=== PATIENT | female | born 1975 | race Caucasian/White ===

== ENCOUNTER 2016-10-22 11:50 | Emergency (ER) | payer OTHER ==
[~2016-10-22 11:50] MED LIST: ACETAMINOPHEN PO; ACETAMINOPHEN/O1 TA3 PO; AMB5 PO; AMBIEN5 MG PO; COL100 PO; HYDROCODONE PO; PER5 PO; SAVELLA50 MG PO; TOPAMAX50 MG PO; WELLBUTRIN XL300 MG PO; ZOFRAN8 MG PO; ZOL50 PO
[2016-10-22 13:11] LABS: BASOPHIL % 0.4 % (0-2); RED CELL DISTRIBUTION WIDTH 19.1 % (11.5-14.5)
[2016-10-22 13:12] LABS: PLATELET COUNT 532 x10^3mcL (130-400)
[2016-10-22 13:46] LABS: UA SPECIFIC GRAVITY 1.025 (1.005-1.035); microscopic required? YES; urine erythrocyte 2+ (NEGATIVE)
[2016-10-22 13:54] LABS: ALBUMIN 4.1 g/dL (3.4-5.0); ALKALINE PHOSPHATASE 125 U/L (46-116); ALT/SGPT 19 U/L (14-59); AST/SGOT 25 U/L (15-37); BILIRUBIN TOTAL 1.1 mg/dL (0.20-1.00); CHLORIDE SERUM 103 mmol/L (98-107); CREATININE SERUM 0.6 mg/dL (0.6-1.0); GFR1 > 60 mL/min; GLUCOSE SERUM 90 mg/dL (74-106); SODIUM SERUM 142 mmol/L (136-145); TOTAL PROTEIN, SERUM 7.9 g/dL (6.4-8.2)
[2016-10-22 13:58] LABS: POTASSIUM SERUM 2.9 mmol/L (3.5-5.1)
[2016-10-22 14:24] LABS: AMPHETAMINE QUAL UR NONE DETECTED (NEG <=1000)
[2016-10-22 22:00] VITALS: BP 112/71
== END 2016-10-22 22:00 | disposition short-term general hospital (02) ==
LOC: ED 11:50
PROVIDERS: Specialist
DX: R45.851 Suicidal ideations (principal); F11.23 Opioid dependence with withdrawal; E87.6 Hypokalemia; F41.9 Anxiety disorder, unspecified; Z86.018 Personal history of other benign neoplasm
CPT/HCPCS: 80307; 83880; G0480; J1170; J2060; J3480; J7030; J7040; Q0162

== ENCOUNTER 2016-12-04 18:34 | Emergency (ER) | payer OTHER ==
[2016-12-04 19:45] VITALS: BP 139/83
== END 2016-12-04 19:45 | disposition home or self-care (01) ==
LOC: ED 18:34
DX: N12 Tubulo-interstitial nephritis, not specified as acute or chronic (principal); K08.89 Other specified disorders of teeth and supporting structures

== ENCOUNTER 2017-01-02 13:50 | Emergency (ER) | payer OTHER ==
[2017-01-02 16:36] LABS: CALCIUM 8.8 mg/dL (8.5-10.1); CARBON DIOXIDE 19.6 mmol/L (21-32); CHLORIDE SERUM 103 mmol/L (98-107); CREATININE SERUM 0.5 mg/dL (0.6-1.0); GFR1 > 60 mL/min; GLUCOSE SERUM 93 mg/dL (74-106); POTASSIUM SERUM 3.2 mmol/L (3.5-5.1); SODIUM SERUM 139 mmol/L (136-145)
[2017-01-02 16:42] LABS: ALBUMIN 3.8 g/dL (3.4-5.0); ALKALINE PHOSPHATASE 103 U/L (46-116); ALT/SGPT 19 U/L (14-59); AST/SGOT 15 U/L (15-37); TOTAL PROTEIN, SERUM 7.2 g/dL (6.4-8.2)
[2017-01-02 16:48] LABS: BASOPHIL % 0.3 % (0-2); PLATELET COUNT 288 x10^3mcL (130-400)
[2017-01-02 16:52] LABS: RED CELL DISTRIBUTION WIDTH 19.9 % (11.5-14.5)
[2017-01-02 18:13] LABS: AMPHETAMINE QUAL UR NONE DETECTED (NEG <=1000)
[2017-01-02 18:37] VITALS: BP 136/88
== END 2017-01-02 18:37 | disposition home or self-care (01) ==
LOC: ED 13:50
PROVIDERS: Emergency Medicine
DX: R07.9 Chest pain, unspecified (principal); R06.4 Hyperventilation; L73.9 Follicular disorder, unspecified; Z76.0 Encounter for issue of repeat prescription; Z88.6 Allergy status to analgesic agent; Z88.5 Allergy status to narcotic agent
CPT/HCPCS: 36415; 83880; Q0092

== ENCOUNTER 2017-01-15 00:45 | Emergency (ER) | payer OTHER ==
[2017-01-15 05:06] LABS: microscopic required? YES; urine erythrocyte 2+ (NEGATIVE)
[2017-01-15 05:07] LABS: BASOPHIL % 0.7 % (0-2)
[2017-01-15 05:10] LABS: PLATELET COUNT 430 x10^3mcL (130-400); RED CELL DISTRIBUTION WIDTH 19.7 % (11.5-14.5)
[2017-01-15 05:26] LABS: ALBUMIN 3.9 g/dL (3.4-5.0); ALKALINE PHOSPHATASE 124 U/L (46-116); ALT/SGPT 26 U/L (14-59); AMYLASE 37 U/L (25-115); AST/SGOT 25 U/L (15-37); BILIRUBIN TOTAL 2.1 mg/dL (0.20-1.00); CARBON DIOXIDE 23.8 mmol/L (21-32); CHLORIDE SERUM 102 mmol/L (98-107); CREATININE SERUM 0.8 mg/dL (0.6-1.0); GFR1 > 60 mL/min; GLUCOSE SERUM 94 mg/dL (74-106); LIPASE 167 IU/L (73-393); SODIUM SERUM 139 mmol/L (136-145); TOTAL PROTEIN, SERUM 7.8 g/dL (6.4-8.2)
[2017-01-15 05:27] LABS: POTASSIUM SERUM 2.8 mmol/L (3.5-5.1)
[2017-01-15 06:28] VITALS: BP 142/94
== END 2017-01-15 06:28 | disposition home or self-care (01) ==
LOC: ED 00:45
PROVIDERS: Emergency Medicine
DX: R31.9 Hematuria, unspecified (principal); R42 Dizziness and giddiness; R10.9 Unspecified abdominal pain; M79.7 Fibromyalgia; G89.29 Other chronic pain; M54.9 Dorsalgia, unspecified; Z90.49 Acquired absence of other specified parts of digestive tract; Z88.5 Allergy status to narcotic agent; Z88.8 Allergy status to other drugs, medicaments and biological substances; Z87.442 Personal history of urinary calculi
CPT/HCPCS: J1170; Q0162

== ENCOUNTER 2017-01-25 09:46 | Inpatient (IN) | payer OTHER ==
[~2017-01-25] VITALS: Ht 160 cm; Wt 86.0 kg
--- NOTE | 2017-01-25 10:01 | NUR ---
PT WAS BROUGHT IN BY AMBULANCE W/CC OF POSS OVERDOSE. PER MEDIC "PATIENT ADMITTED TO TAKING 90 PILLS OF NORCO IN 3 DAYS AND 1 PILL OF XANAX TODAY WITH MORE THAN HALF A BOTTLE OF VODKA". PT REPORTS SUICIDAL IDEATION AND STATES THE REASON SHE DOESN'T "KILL HERSELF" IS BECAUSE OF HER SON. PT REPORTS HER 8YR OLD SON STILL NEEDS HER AND HE'S THE REASON WHY SHE'S TRYING TO GET HELP. PT STS SHE WAS PREVIOUSLY SEEN IN [facility] BUT WAS DISCHARGED AFTER 1WK DUE TO INSURANCE NOT COVERING THE REST OF HER VISIT. PT CALLED A HELP LINE TODAY CIRCULATION ANALYST AND HELP LINE CALLED [employer] TO RESIDENCE. PT SPEAKING IN CLEAR FULL SENTENCES. COOPERATIVE. NO NEUROLOGICAL DEFICITS NOTED AT THIS TIME. PT ABLE TO FOLLOW COMMANDS. VSS. SUICIDE PRECAUTIONS IMPLEMENTED. BELONGINGS REMOVED AND PLACED IN RADIO ROOM. COMFORT MEASURES IMPLEMENTED. PT IN DIRECT VIEW OF NURSE'S STATION. WILL CONTINUE TO MONITOR.
--- NOTE | 2017-01-25 10:14 | NUR ---
DR. IRVIN AT BEDSIDE FOR MSE.
--- NOTE | 2017-01-25 10:29 | NUR ---
SPOKE W/TONYA FROM POISON CONTROL. STS DUE TO PT'S CHRONIC INGESTION, HEPATOTOXIC PANEL COULD BE DIFFICULT TO EVALUATE. SHE RECOMMENDED STARTING PT ON N-ACETYLCYSTEINE AND OBTAINING LST, AST, INR, ACETAMINOPHEN, BLOOD ALCOHOL LEVELS WELL A METABOLIC PANEL AND EKG. DR. IRVIN MADE AWARE.
[2017-01-25 10:54] LABS: PLATELET COUNT 303 x10^3mcL (130-400)
[2017-01-25 11:00] LABS: BASOPHIL % 0 % (0-2); RED CELL DISTRIBUTION WIDTH 19.9 % (11.5-14.5)
--- NOTE | 2017-01-25 11:06 | NUR ---
AMBULATED PT TO RESTROOM W/STEADY GAIT, NO ASSISTANCE NEEDED. URINE SAMPLE COLLECTED AND SENT TO LAB
[2017-01-25 11:08] LABS: microscopic required? YES; urine erythrocyte 1+ (NEGATIVE)
[2017-01-25 11:13] LABS: ALBUMIN 3.8 g/dL (3.4-5.0); ALKALINE PHOSPHATASE 106 U/L (46-116); ALT/SGPT 53 U/L (14-59); AST/SGOT 58 U/L (15-37); BILIRUBIN TOTAL 0.4 mg/dL (0.20-1.00); CALCIUM 8.5 mg/dL (8.5-10.1); CARBON DIOXIDE 20.8 mmol/L (21-32); CHLORIDE SERUM 110 mmol/L (98-107); CREATININE SERUM 0.6 mg/dL (0.6-1.0); GFR1 > 60 mL/min; GLUCOSE SERUM 84 mg/dL (74-106); SODIUM SERUM 146 mmol/L (136-145); TOTAL PROTEIN, SERUM 7.9 g/dL (6.4-8.2)
[2017-01-25 11:15] LABS: POTASSIUM SERUM 2.9 mmol/L (3.5-5.1)
--- NOTE | 2017-01-25 11:47 | NUR ---
PT ANXIOUS ON GUDEIRDRE REQUESTING PAIN MEDS. DR. IRVIN AT BEDSIDE SPEAKING TO PT.
--- NOTE | 2017-01-25 12:45 | NUR ---
MEDICATED ORDERED. PLEASE SEE EMR.
--- NOTE | 2017-01-25 13:12 | NUR ---
EATING LUNCH. AWAITING PSYCH PLACEMENT.
--- NOTE | 2017-01-25 13:22 | NUR ---
PT TOLERATED LUNCH TRAY WELL. GIVEN TOOTHBRUSH, TOOTHPASTE, LOTION, DEODORANT & MOUTHWASH. DECLINED OFFER OF TOWELS.
[2017-01-25] MEDS ORDERED: NORCO1 TA2 PO (14:30)
[2017-01-25] MEDS ORDERED: PROZAC10 M2 PO (14:31)
[2017-01-25] MEDS ORDERED: XANAX XR1 M1 PO (14:31)
[2017-01-25 14:51] LABS: CALCIUM 8.3 mg/dL (8.5-10.1); CARBON DIOXIDE 15.4 mmol/L (21-32); CHLORIDE SERUM 110 mmol/L (98-107); CREATININE SERUM 0.7 mg/dL (0.6-1.0); GFR1 > 60 mL/min; GLUCOSE SERUM 124 mg/dL (74-106); SODIUM SERUM 144 mmol/L (136-145)
[2017-01-25 15:01] LABS: POTASSIUM SERUM 2.6 mmol/L (3.5-5.1)
--- NOTE | 2017-01-25 15:33 | NUR ---
MEDICATED W/POTASSIUM ORDERED FOR LOW K+ READING.
--- NOTE | 2017-01-25 16:27 | NUR ---
IV SITE PATENT. NO S/S OF INFILTRATION OR INFECTION NOTED. PT DENIES PAIN OR DISCOMFORT TO SITE.
--- NOTE | 2017-01-25 17:21 | NUR ---
REPORT TO [place].
--- NOTE | 2017-01-25 17:33 | NUR ---
SPOKE W/EDMOND FROM POISON CONTROL AND GAVE UPDATE.
--- NOTE | 2017-01-25 17:38 | NUR ---
RECEIVED PT FROM ED VIA [employer], PT IS AAOX4. NO SOB NOTED. DENIES CHEST PAIN/PERSSURE, NSR ON THE MONITOR. C/P MILD NAUSEA AND DIARRHEAL EPISODES, STATED THAT SHE VOMITED X2 BEFORE ADMISSION. C/O 8/10 SHARP BACK AND RLE PAIN. PT IS DEPRESSED. PT DENIES SUICIAL THOUGHTS AT THIS TIME. SITTER AT BEDSIDE. SIDE RAILS UPX2. CALL LIGHT ON REACH. ENDORSED TO PRIMARY NURSE [place] FOR CONTINUITY OF CARE.
[2017-01-25 17:43] VITALS: BP 121/71
[2017-01-25 17:48] VITALS: Ht 160 cm; Wt 86.0 kg
--- NOTE | 2017-01-25 18:15 | NUR ---
ASSUMED PT. CARE,RECIEVED PT. AWAKE,ALERT AND ORIENTED. NO SUCIDAL EDEATION AT THIS TIME.SITTER AT BEDSIDE. QUITE CALM AND COOPERATIVE,K-2.6 NOTIFIED W/ NEW ORDERS MADE AND CARRIED OUT.K-RIDER GIVEN AND INFUSING WELL TO RT. AC. CONT. IV FLUIDS ORDERED. ABLE TO AMBULATE IN THE BATHROOM AND VOIDING WELL.CALL LIGHT W/ IN REACH. WILL CONT. PLAN OF CARE.
--- NOTE | 2017-01-25 20:00 | NUR ---
RECEIVED PT IN BED, ALERT AND ORIENTED. SITTER AT THE BEDSIDE FOR SAFETY. DENIES HEADACHE/DIZZINESS. RESP. EVEN AND UNLABORED. ON ROOM AIR, NO DISTRESS NOTED. SR ON THE MONITOR.DENIES CHEST PAIN OR PRESSURE. COMPLAINING OF BACK PAIN, REQUESTING PAIN MED, WILL MEDICATE ORDERED. AFEBRILE AND VITAL SIGNS STABLE.IVF, NS AT 80ML/HR, INTACT AND INFUSING VIA RAC, SITE CLEAR. K-RIDER ALSO INFUSING AT THIS TIME. CALL LIGHT WITHIN REACH. WILL CONTINUE TO MONITOR.
[2017-01-25 20:49] VITALS: BP 120/62
[2017-01-25 21:00] LABS: UA SPECIFIC GRAVITY 1.025 (1.005-1.035); microscopic required? YES; urine erythrocyte 1+ (NEGATIVE)
[2017-01-25 21:19] LABS: AMPHETAMINE QUAL UR NONE DETECTED (NEG <=1000)
--- NOTE | 2017-01-25 22:20 | NUR ---
COMPLAINED OF BACK PAIN, 12/24, MEDICATED WITH NORCO PO ORDERED, BUT PT STATES NO PAIN RELIEF, REQUESTING DILAUDID, DR BROWN MADE AWARE, DILAUDID ORDERED. ,MEDICATED ORDERED. WILL CONTINUE TO MONITOR.
--- NOTE | 2017-01-25 23:23 | NUR ---
EYES CLOSED. APPEARS ASLEEP AT THIS TIME. EASILY AROUSABLE.NO DISTRESS NOTED. WILL CONTINUE TO MONITOR.
[2017-01-26 05:50] VITALS: BP 137/90
--- NOTE | 2017-01-26 06:27 | NUR ---
SLEPT WELL. NO COMPLAINTS NOTED AT THIS TIME. AFEBRILE AND VITAL SIGNS STABLE. RESP. EVEN AND UNLABORED. DENIES PAIN OR ANY DISCOMFORT AT THIS TIME. IVF INTACT AND INFUSING, SITE CLEAR. AMBULATES TO THE BATHROOM, VOIDS FREELY. SITTER AT THE BEDSIDE FOR SAFETY. WILL CONTINUE TO MONITOR.
[2017-01-26 06:32] LABS: BASOPHIL % 0.5 % (0-2); PLATELET COUNT 283 x10^3mcL (130-400)
[2017-01-26 06:46] LABS: RED CELL DISTRIBUTION WIDTH 19.9 % (11.5-14.5)
[2017-01-26 07:03] LABS: CALCIUM 8.3 mg/dL (8.5-10.1); CHLORIDE SERUM 111 mmol/L (98-107); CREATININE SERUM 0.6 mg/dL (0.6-1.0); GFR1 > 60 mL/min; GLUCOSE SERUM 78 mg/dL (74-106); POTASSIUM SERUM 3.8 mmol/L (3.5-5.1); SODIUM SERUM 142 mmol/L (136-145)
--- NOTE | 2017-01-26 07:50 | NUR ---
A/OX4. PATIENT IS AWAKE AND CALM. SAD AND DEPRESSED MOOD. SITTER AT BEDSIDE FOR SAFETY. SCDS ARE APPLIED TO BILATERAL LOWER EXTREMITIES. RA WITH NO SIGNS OF RESPIRATORY DISTRESS. DENIES CHEST PAIN. NO COMPLAINTS OF NAUSEA. AMBULATORY TO THE RESTROOM AND VOIDS WELL. SKIN ASSESSMENT INTACT. IV FLUIDS INFUSING WELL WITH NO SIGNS OF INFLITRATION. CALL LIGHT WITHIN REACH. WILL CONTINUE PLAN OF CARE.
--- NOTE | 2017-01-26 09:00 | NUR ---
DR TOWNSEND AND OTHER MEDICAL STAFF ARE MAKING ROUNDS. WILL UPDATE PLAN OF CARE.
--- NOTE | 2017-01-26 12:53 | NUR ---
PT COMPLAINED OF BACK PAIN. PT WAS GIVEN PAIN MEDICATIONS ORDERED. WILL REASSESS.
--- NOTE | 2017-01-26 13:45 | NUR ---
PT IS TOLERATING MEDICATION WELL AND HAS NO COMPLAINTS OF PAIN AT THIS TIME. WILL CONTINUE TO MONITOR.
--- NOTE | 2017-01-26 18:34 | NUR ---
PT. QUITE AND RESTING COMFORTABLY IN BED. DENIES ANY PAIN AT THIS TIME. CONT. IV FLUIDS ORDERED.CALL LIGHT W/ IN REACH.1;1 SITTER AT BEDSIDE
--- NOTE | 2017-01-26 19:33 | NUR ---
PT C/O SEVERE BACK PAIN 03/26, WILL MEDICATE PT WITH NORCO 10/325MG PO ORDERED FOR PAIN .
--- NOTE | 2017-01-26 19:58 | NUR ---
REC'D PT FROM DAY NURSE. AAOX4. LAYING IN BED SAD AND DEPRESSED. PULSES ARE EVEN AND PALPABLE. TELE #6. LUNG SOUNDS ARE CTA. BREATH SOUNDS ARE EVEN AND UNLABORED. NO SOB. NO N/V/D. ABD IS SOFT AND ROUND. NO EDEMA NOTED. 5150 NOTED. SITTER AT BEDSIDE FOR SAFETY. BED IN LOWEST POSITION. CALL LIGHT WITHIN REACH. WILL CONT TO MONITOR AND PROCEED TO THE PLAN OF CARE.
--- NOTE | 2017-01-26 21:23 | NUR ---
Pt IS COMPLAINING OF CONSTANT BACK PAIN 10/. WILL BE [facility] PAIN MED.
--- NOTE | 2017-01-26 21:28 | NUR ---
Pt BP 128/23 (88), HR 75, 02 SAT 98%. WILL CONT TO MONITOR.
[2017-01-26 21:30] VITALS: BP 128/73
--- NOTE | 2017-01-27 02:44 | NUR ---
PT IS CURRENTLY ASLEEP AND RESTING WELL. NO SIGNS OF ACUTE DISTRESS NOTED. IV INTACT AND PATENT. WILL CONT TO MONITOR.
[2017-01-27 06:11] VITALS: BP 143/84
--- NOTE | 2017-01-27 06:11 | NUR ---
PT SLEPT THROUGHOUT THE SHIFT. NO ACUTE DISTRESS OR SIGNIFICANT CHANGES NOTED. PT WAS VERY CALM AND COOPERATIVE. ALL NEEDS MET AND ATTENDED TO. IV INTACT AND PATENT INFUSING WELL. WILL ENDORSE ALL CONTINUITY CARE TO ONCOMING NURSE.
[2017-01-27 06:44] LABS: BASOPHIL % 0.4 % (0-2); PLATELET COUNT 285 x10^3mcL (130-400)
[2017-01-27 06:48] LABS: RED CELL DISTRIBUTION WIDTH 19.5 % (11.5-14.5)
[2017-01-27 06:52] LABS: CALCIUM 8.2 mg/dL (8.5-10.1); CARBON DIOXIDE 22.5 mmol/L (21-32); CHLORIDE SERUM 107 mmol/L (98-107); CREATININE SERUM 0.5 mg/dL (0.6-1.0); GFR1 > 60 mL/min; GLUCOSE SERUM 82 mg/dL (74-106); POTASSIUM SERUM 3.3 mmol/L (3.5-5.1); SODIUM SERUM 141 mmol/L (136-145)
--- NOTE | 2017-01-27 08:30 | NUR ---
PT. IS AWAKE, ALERT, AND ORIENTED X4. PT. RIGHT AC PATENT AND IV FLUIDS INFUSING WELL. PT. IS ABLE TO ABULATE TO THE BATHROOM. PT COMPLAINS OF BACK PAIN. MEDICATED FOR PAIN ORDERED. PT. IS IN NO ACUTE DISTRESS AT THE TIME. CONTINUE PLAN OF CARE.
--- NOTE | 2017-01-27 09:30 | NUR ---
DR JETT AND OTHER MEDICAL STAFF MADE ROUNDS AND UPDATED PT. PLAN OF CARE.
[2017-01-27 10:00] VITALS: BP 129/87
--- NOTE | 2017-01-27 10:00 | NUR ---
POTASSIUM LEVEL AT 3.3. DR. ZIMMER NOTIFIED WITH ORDERS RECEIVED AND CARRIED OUT.
--- NOTE | 2017-01-27 11:00 | NUR ---
PT WENT DOWN TO XRAY PER WHEELCHAIR.
--- NOTE | 2017-01-27 11:45 | NUR ---
PT. BACK FROM XRAY PER WHEELCHAIR. PT. COMPLAINS OF ABDOMINAL PAIN. MEDICATED FOR PAIN ORDERED.
--- NOTE | 2017-01-27 12:00 | NUR ---
ENCOURAGED PT. TO GET OUT OF BED TO WASH SELF IN THE BATHROOM. PT. WILLING TO DO HER CARE.
--- NOTE | 2017-01-27 12:00 | NUR ---
OLD IV RIGHT AC STARTED LEAKING. NANCY PRIDE DISCONTINUED THE OLD IV ACCESS AND REINSERTED IV IN LEFT HAND WITH GOOD BLOOD RETURN.
[2017-01-27 14:00] VITALS: BP 129/75
[2017-01-27 17:50] VITALS: BP 124/77
--- NOTE | 2017-01-27 18:37 | NUR ---
DENIES PAIN AT THIS TIME.NO ACUTE DISTRESS NOTED. CALL LIGHT W/ IN REACH. STILL ON 5150 ,CONT. 1;1 SITTER AT BEDSIDE.
--- NOTE | 2017-01-27 19:20 | NUR ---
PT ALERT AND AWAKE. AOX4. VERBAL WITH CLEAR SPEECH. LUNGS CLEAR BILATERALLY. NO S/S OF RESPIRATORY DISTRESS NOTED. ON TELE 7, NSR. DENIES ANY CHEST PAIN. ABD SOFT AND ROUND. BOWEL SOUNDS ACTIVE. LAST BM 01/27/17. SKIN WARM AND DRY. IV PATENT AND INFUSING WELL. NO S/S OF INFECTION NOTED. NO EDEMA NOTED. PULSES PALPABLE. NO S/S OF DISTRESS NOTED AT THIS TIME. CALM AND COOPERATIVE AT THIS TIME. SITTER AT BEDSIDE. CALL LIGHT WITHIN REACH. WILL CONTINUE TO MONITOR.
--- NOTE | 2017-01-28 00:50 | NUR ---
PT AWAKE AND ALERT. C/O ABDOMINAL PAIN 01/24. PRN MORPHINE 4MG IVP GIVEN. PT C/O FEELING ITCHY. NO RASHES NOTED. DENIES ANY SOB. NO S/S OF RESPIRATORY DISTRESS NOTED. PRN BENADRYL 50 MG PO GIVEN FOR ITCHINESS. CALL LIGHT WITHIN REACH. WILL CONTINUE TO MONITOR.
--- NOTE | 2017-01-28 02:15 | NUR ---
PT RESTING IN BED WITH EYES CLOSED. BREATHING EQUAL AND UNLABORED. NO S/S OF RESPIRATORY DISTRESS NOTED. IV PATENT AND INFUSING WELL. NO S/S OF DISTRESS NOTED. RESTING COMFORTABLY WITH RELAXED FACIAL FEATURES. CALL LIGHT WITHIN REACH. WILL CONTINUE TO MONITOR.
--- NOTE | 2017-01-28 06:17 | NUR ---
PT SLEPT WELL THROUGH THE NIGHT. EASILY AROUSED WHEN NAME CALLED. RECEIVED ROUTINE ATIVAN 1 MG PO AND SWALLOWED WITHOUT DIFFICULTY. CALM AND COOPERATIVE. NO S/S OF DISTRESS NOTED. RESTING WITH RELAXED FACIAL FEATURES. CALL LIGHT WITHIN REACH. WILL CONTINUE TO MONITOR.
[2017-01-28 06:41] LABS: BASOPHIL % 0.5 % (0-2); PLATELET COUNT 273 x10^3mcL (130-400)
[2017-01-28 06:42] LABS: CALCIUM 8.3 mg/dL (8.5-10.1); CARBON DIOXIDE 23.4 mmol/L (21-32); CHLORIDE SERUM 109 mmol/L (98-107); CREATININE SERUM 0.5 mg/dL (0.6-1.0); GFR1 > 60 mL/min; GLUCOSE SERUM 81 mg/dL (74-106); POTASSIUM SERUM 3.4 mmol/L (3.5-5.1); SODIUM SERUM 142 mmol/L (136-145)
[2017-01-28 06:43] LABS: RED CELL DISTRIBUTION WIDTH 18.8 % (11.5-14.5)
--- NOTE | 2017-01-28 07:35 | NUR ---
AAO X4.C/O BACK PAIN AT 6/10 PAIN SCALE.REFUSED PAIN MEDS AT THE MOMENT.LUNGS CLEAR. ON SR ON THE MONITOR.IVF NS GOING AT 150 ML/HR INFUSING WELL.ON 5150 HOLD .SITTER AT BEDSIDE.CALL LIGTH WITHIN REACH.INSTRUCTED TO CALL FOR ANY PAIN/DISCOMFORT.WILL CONTINUE TO MONITOR PT.
--- NOTE | 2017-01-28 08:26 | NUR ---
AND MEDICINE TEAM AT BEDSIDE.INFORMED PT ABOUT THE PLAN OF CARE.PT COOPERATIVE.
[2017-01-28 09:03] VITALS: BP 102/54
--- NOTE | 2017-01-28 10:26 | NUR ---
GAVE MORPHINE 4 MG IVP ORDERED FOR C/O ABDOMINAL PAIN AND BACK PAIN AT 8/10 PAIN SCALE.WILL CONTINUE TO MONITOR PT.
[2017-01-28 13:36] VITALS: BP 135/83
--- NOTE | 2017-01-28 15:00 | NUR ---
INFORMED ABOUT THE K=3.4
[2017-01-28 18:20] VITALS: BP 151/93
--- NOTE | 2017-01-28 18:34 | NUR ---
NO SIGNIFICANT CHANGE NOTED.WILL ENDORSE TO NEXT SHIFT.
--- NOTE | 2017-01-28 19:39 | NUR ---
SHIFT REASSESSMENT DONE.PATIENT ALERT AND ORIENTED.5150,SITTER AT BEDSIDE FOR SAFETY.BREATHING EASY,STILL EATING DINNER.GOOD APPETITE.MOVING ALL EXT WELL.NS AT 150 CC/ HOUR.IV SITE GOOD AND SECURED.TELE 7 SR.SKIN INTACT.SCD ORDERED.CALL LITE IN REACH.
[2017-01-28 21:03] VITALS: BP 125/80
--- NOTE | 2017-01-28 21:26 | NUR ---
PATIENT CHECKED AT INTERVALS,SITTER AT BEDSIDE.NO INCIDENT.
--- NOTE | 2017-01-29 01:44 | NUR ---
GIVEN MSO4 AT THIS TIME SHE SAYS BLADIMIR DID NOT WORK.HAS BACK PROBLEM.
--- NOTE | 2017-01-29 03:12 | NUR ---
DR STAUFFER MADE AWARE OF PATIENT LOW K+,NOT COVERED FROM YESTERDAY.
--- NOTE | 2017-01-29 03:14 | NUR ---
PATIENT WAS GIVEN PAIN PILL AROUND AFTER MIDNITE,BLADIMIR,WAS SCANNED ALREADY,SAYS IT WILL NOT WORK,REMINDED JUST TRY IT FOR NOW.IF NOT EFFECTIVE WILL GIVE PAIN SHOT.
[2017-01-29 06:20] LABS: BASOPHIL % 0.5 % (0-2); PLATELET COUNT 283 x10^3mcL (130-400)
--- NOTE | 2017-01-29 06:21 | NUR ---
I AND O MEASURED.ATIVAN THIS AM GIVEN,ETOH PROTOCOL.WILL ENDORSE TO INCOMING SHIFT.
[2017-01-29 06:24] LABS: RED CELL DISTRIBUTION WIDTH 19.7 % (11.5-14.5)
[2017-01-29 06:26] LABS: CALCIUM 7.8 mg/dL (8.5-10.1); CARBON DIOXIDE 25.1 mmol/L (21-32); CHLORIDE SERUM 108 mmol/L (98-107); CREATININE SERUM 0.6 mg/dL (0.6-1.0); GFR1 > 60 mL/min; GLUCOSE SERUM 102 mg/dL (74-106); POTASSIUM SERUM 3.5 mmol/L (3.5-5.1); SODIUM SERUM 143 mmol/L (136-145)
[2017-01-29 06:34] VITALS: BP 105/60
--- NOTE | 2017-01-29 08:57 | NUR ---
AAO TIMES 4. DENIES SUICIDAL IDEATION. 1:1 SITTER AT BEDSIDE. COOPERATIVE AND PLEASANT. LUNGS CTA. NO SOB. O2 SAT ON RA 98%. BS'S ACTIVE TIMES 4. OBESE. PERIPHERAL PULSES PALPABLE. NO EDEMA. SCD BLE. PT STATES SHE GETS CRAZY WHEN HER BACK HURTS AND SHE WOULD TAKE ANYTHING OR DRINK ANY ALCOHOL. SHE DENEIS PAIN AT THIS MOMENT. COOPERATIVE AND PLEASANT.
[2017-01-29 10:30] VITALS: BP 108/64
[2017-01-29 18:03] VITALS: BP 141/82
--- NOTE | 2017-01-29 18:44 | NUR ---
AAO TIMES 4. TELE # 7 SR. 1:[address] RAMIREZ SAW PT AND THIS PT WILL CONTINUE TO BE 51/50, WHEN MEDICALLY CLEARED, SHE WILL GO TO A PSYCH FACILITY. NO C/O PAIN AT THIS TIME. IV SITE LEFT HAND CDI, PATENT.
--- NOTE | 2017-01-29 19:51 | NUR ---
SHIFT REASSESSMENT DONE.PATIENT ALERT,WAS ASLEEP,BUT WOKE UP EASILY.IN GOOD SPIRIT.VERBALIZE NEEDS.BREATHING EASY.NS AT 50 CC/ HOUR.TELE 7 SR.STILL 5150.SITTER AT BEDSIDE FOR SAFETY.SKIN INTACT.SCD ORDERED.MSO4 WAS GIVEN LAST 1755.DOES NOT LIKE NORCO PO.ETOH PROTOCOL CONTINOUS.CALL LITE IN REACH.
[2017-01-29 20:43] VITALS: BP 103/65
--- NOTE | 2017-01-29 20:48 | NUR ---
ATIVAN PO AT 2200.
--- NOTE | 2017-01-30 02:22 | NUR ---
SLEEPING COMFORTABLY.SITTER AT BEDSIDE.CALL LITE IN REACH.
--- NOTE | 2017-01-30 05:53 | NUR ---
PATIENT AM MEDS GIVEN WITHOUT ANY INCIDENT.WILL ENDORSE TO NEST SHIFT.
[2017-01-30 06:29] LABS: BASOPHIL % 0.4 % (0-2); PLATELET COUNT 291 x10^3mcL (130-400)
[2017-01-30 06:38] VITALS: BP 122/68
[2017-01-30 06:39] LABS: CALCIUM 8.2 mg/dL (8.5-10.1); CARBON DIOXIDE 27.4 mmol/L (21-32); CHLORIDE SERUM 107 mmol/L (98-107); CREATININE SERUM 0.6 mg/dL (0.6-1.0); GFR1 > 60 mL/min; GLUCOSE SERUM 78 mg/dL (74-106); POTASSIUM SERUM 3.8 mmol/L (3.5-5.1); SODIUM SERUM 141 mmol/L (136-145)
[2017-01-30 07:17] LABS: RED CELL DISTRIBUTION WIDTH 19.4 % (11.5-14.5)
--- NOTE | 2017-01-30 07:25 | NUR ---
RECEIVED PT IN NO ACUTE DISTRESS. RESP EVEN AND UNLABORED ON RA. NO SOB NOTED. 1:1 SITTER AT BEDSIDE. DENIES PAIN AT THIS TIME. IVF INFUSING. BED IN LOWEST POSITION, CALL LIGHT WITHIN REACH. WILL CONTINUE TO MONITOR.
--- NOTE | 2017-01-30 12:20 | NUR ---
PT SITTING ON EDGE OF BED. C/O ABD AND LOWER BACK PAIN 8/10. 4MG MORPHINE GIVEN. BED IN LOWEST POSITION. CALL LIGHT WITHIN REACH. SITTER AT BEDSIDE WILL CONTINUE TO MONITOR.
[2017-01-30 13:25] VITALS: BP 128/92
[2017-01-30 15:35] VITALS: BP 128/92
[2017-01-30 17:41] VITALS: BP 142/86
--- NOTE | 2017-01-30 19:03 | NUR ---
PT SLEEPING IN BED. APPEARS TO BE IN NO ACUTE DISTRESS. IV SALINE LOCKED, INTACT. BED IN LOWEST POSITION. CALL LIGHT WITHIN REACH. 1:1 SITTER AT BEDSIDE. WILL ENDORSE TO NIGHT NURSE.
--- NOTE | 2017-01-30 19:06 | NUR ---
NURSING CO-SIGN THE DOCUMENTATION ENTERED BY THE RN HAS BEEN REVIEWED. REVIEWED/CO-SIGNED BY: Zuleyma Torrez DOCUMENTATION DONE BY: JOVANY MEDELLIN
--- NOTE | 2017-01-30 19:29 | NUR ---
RECEIVED PT FROM PREVIOUS SHIFT. PATIENT A/O X4. TELE #7. IV LEFT HAND SALINE LOCK. BED IN LOWEST POSITION. WILL CONTINUE TO MONITOR.
--- NOTE | 2017-01-30 21:10 | NUR ---
PATIENT A/OX4. TELE #7. NSR AT THIS TIME. DENIES ANY CHEST PAIN OR PRESSURE. PULSES STRONG BILAT. NO EDEMA PRESENT. LUNG SOUNDS CLEAR BILAT. DENIES ANY SOB. BOWEL SOUNDS ACTIVE X4. MILD WEAKNESS IN HAND SYNTHETIC FILAMENT SPINNER BILAT. FOOT PUSH/PULL EVEN AND STRONG BILAT. PERRLA. PATIENT AMBULATORY. SKIN IS INTACT. OLD SURGICAL SCAR PRESENT ON ABD FROM PRIOR LIVER RESECTION/GASTRIC BYPASS. PATIENT CALM AND COOPERATIVE AT THIS TIME. REPORTING PAIN 6/10 IN LOWER BACK AND RIGHT UPPER ABD AREA. STATES PAIN IS SHARP IN BACK AND A CONSTANT SORE ACHE IN THE ABD. BED IN LOWEST POSITION. CALL LIGHT WITHIN REACH. WILL CONTINUE TO MONITOR.
--- NOTE | 2017-01-30 21:17 | NUR ---
ADMINISTERED PAIN MEDS PER EMAR ORDERS. PATIENT DAUGHTER AT BEDSIDE. WILL CONTINUE TO MONITOR
[2017-01-30 21:30] VITALS: BP 132/73
--- NOTE | 2017-01-30 22:54 | NUR ---
PT RESTING IN BED. REQUESTED SHERITA TO HELP WITH SLEEP. NOTIFYING PHARMACY FOR VERIFICATION. WILL CONTINUE TO MONITOR
--- NOTE | 2017-01-30 23:47 | NUR ---
PATIENT RESTING PEACEFULLY. ALIVE AND WELL. WILL CONTINUE TO MONITOR
[2017-01-31 08:00] VITALS: BP 138/74
[2017-01-31 08:54] LABS: CALCIUM 8.3 mg/dL (8.5-10.1); CARBON DIOXIDE 27.1 mmol/L (21-32); CHLORIDE SERUM 106 mmol/L (98-107); CREATININE SERUM 0.6 mg/dL (0.6-1.0); GFR1 > 60 mL/min; GLUCOSE SERUM 60 mg/dL (74-106); POTASSIUM SERUM 3.6 mmol/L (3.5-5.1); SODIUM SERUM 142 mmol/L (136-145)
[2017-01-31 08:55] LABS: BASOPHIL % 0.4 % (0-2); PLATELET COUNT 309 x10^3mcL (130-400)
[2017-01-31 09:58] LABS: RED CELL DISTRIBUTION WIDTH 18.8 % (11.5-14.5)
--- NOTE | 2017-01-31 10:06 | NUR ---
LATE ENTRY 01/31/17 0730 PT RECEIVED FROM NIGHT NURSE IN NO ACUTE DISTRESS. RESPIRATIONS EVEN AND UNLABORED. PT IS RESTING IN BED. NO COMPLAINT OF PAIN AT THIS TIME. IV TO LEFT HAND, SALINE LOCKED. BED IN LOWEST POSITION. CALL LIGHT WITHIN REACH. 1:1 SITTER AT BEDSIDE. WILL CONTINUE TO MONITOR.
--- NOTE | 2017-01-31 12:49 | NUR ---
PT IS ASLEEP IN BED, APPEARS TO BE IN NO ACUTE DISTRESS. NO PAIN NOTED AT THIS TIME. BED IN LOWEST POSITION. CALL LIGHT WITHIN REACH. 1:1 SITTER AT BEDSIDE. WILL CONTINUE TO MONITOR.
[2017-01-31 14:08] VITALS: BP 121/73
[2017-01-31 17:54] VITALS: BP 132/81
--- NOTE | 2017-01-31 18:57 | NUR ---
PT IS RESTING IN BED IN NO ACUTE DISTRESS. SALINE LOCK LEFT HAND. 1:1 SITTER AT BEDSIDE. MORPHINE GIVEN FOR ABD/BACK PAIN 01/24. BED IN LOWEST POSITION. CALL LIGHT WITHIN REACH. WILL ENDORSE TO WELL TENDER NURSE.
--- NOTE | 2017-01-31 19:04 | NUR ---
NURSING CO-SIGN THE DOCUMENTATION ENTERED BY THE RN HAS BEEN REVIEWED. REVIEWED/CO-SIGNED BY: Zuleyma Torrez DOCUMENTATION DONE BY: JOVANY MEDELLIN
--- NOTE | 2017-01-31 19:50 | NUR ---
RECEIVED PT FROM PREVIOUS SHIFT. PT A/OX4. DENIES PAIN. DENIES SOB ON RA. IV PATENT AND HEP LOCKED PER ORDER, FLUSHING WELL. SCDS TO BLE. CALL LIGHT WITHIN REACH, BED IN LOW POSITION. WILL CONTINUE TO MONITOR.
[2017-01-31 21:01] VITALS: BP 103/50
--- NOTE | 2017-01-31 23:06 | NUR ---
PT C/O 01/24 BACK PAIN. BP 122/71. MORPHINE PROVIDED IVP PER EMAR
[2017-02-01 06:36] LABS: BASOPHIL % 0.2 % (0-2); PLATELET COUNT 320 x10^3mcL (130-400)
[2017-02-01 06:45] LABS: CALCIUM 8.4 mg/dL (8.5-10.1); CARBON DIOXIDE 26.9 mmol/L (21-32); CHLORIDE SERUM 106 mmol/L (98-107); CREATININE SERUM 0.6 mg/dL (0.6-1.0); GFR1 > 60 mL/min; GLUCOSE SERUM 79 mg/dL (74-106); POTASSIUM SERUM 3.6 mmol/L (3.5-5.1); SODIUM SERUM 140 mmol/L (136-145)
[2017-02-01 06:51] LABS: RED CELL DISTRIBUTION WIDTH 19.5 % (11.5-14.5)
--- NOTE | 2017-02-01 07:39 | NUR ---
RECEIVED PT LAYING IN BED AWAKE AND ALERT. PT C/O BACK PAIN 01/24. LAYING IN LEFT LATERAL POSITION. RESPIRATIONS EVEN AND UNLABORED. PLEASANT WHEN ENGAGED. CALL LIGHT WITHIN REACH. BED IN LOWEST POSITION. ENCOURAGED PT TO TAKE DEEP BREATHES AND TO REPOSITION FOR COMFORT UNTIL PAIN MEDICATION CAN BE RETRIEVED. WILL CONTINUE TO MONITOR
--- NOTE | 2017-02-01 07:44 | NUR ---
FOR 8/10 PAIN, PT WAS GIVEN MORPHINE PRN IVP. WILL CONTINUE TO MONITOR
--- NOTE | 2017-02-01 09:45 | NUR ---
SPOKE TO PT IN LENGTH ALLOWING HER TO EXPRESS FEELINGS. STATES THAT SHE WANTS TO GO HOME BECAUSE SHE HAS BEEN AWAY FROM HER 8 YEAR OLD SON [place] TOO LONG AND THAT SHE IS SAD THAT SHE MISSED HIS FIRST DAY OF SCHOOL. STATES THAT SHE IS ALSO VERY ANXIOUS ABOUT PLACEMENT TO ANOTHER FACILITY AND NOT KNOWING WHERE OR HOW LONG SHE WILL BE THERE. PT WAS VERY TEARFUL. PROVIDED COMFORT AND SUPPORT. ENCOURAGED PT TO FOLLOW THROUGH WITH TREATMENT SO THAT SHE CAN BETTER HERSELF FOR HER AND HER FAMILY. ENCOURAGED HER TO TAKE DEEP BREATHES. WAS GIVEN ATIVAN PO PRN. CALL LIGHT WITHIN REACH. WILL CONTINUE TO MONITOR
[2017-02-01 10:11] VITALS: BP 134/82
--- NOTE | 2017-02-01 11:47 | NUR ---
PT STATES THAT THE PAIN IS INCREASING AND THAT THE PO NORCO DID NOT HELP, AND THAT IT NEVER DOES BECAUSE THAT IS WHAT SHE TAKES AT HOME. STATES PAIN IS 7/10. OFFERED TO ORDER A KPAD, BUT PT DECLINED. ENCOURAGED PT TO REPOSITION FOR COMFORT. CALL LIGHT WITHIN REACH. WILL CONTINUE TO MONITOR
[2017-02-01 14:05] VITALS: BP 125/75
--- NOTE | 2017-02-01 15:44 | NUR ---
PT C/O BACK PAIN 01/24. ENCOURAGED PT TO RELAX, TAKE DEEP BREATHES, AND TO REPOSITION FOR COMFORT. GIVEN MORPHINE IVP PRN. CALL LIGHT WITHIN REACH. WILL CONTINUE TO MONITOR
== END 2017-02-01 21:59 | disposition home or self-care (01) | DRG 917 ==
LOC: ED 09:46 → DU 14:06
PROVIDERS: Emergency Medicine Emergency Medical Services; Family Medicine; ADMIT Family Medicine
DX: T51.91XA Toxic effect of unspecified alcohol, accidental (unintentional), initial encounter (principal); G92 Toxic encephalopathy; F11.20 Opioid dependence, uncomplicated; F33.2 Major depressive disorder, recurrent severe without psychotic features; R45.851 Suicidal ideations; F10.129 Alcohol abuse with intoxication, unspecified; M79.7 Fibromyalgia; E87.6 Hypokalemia; D64.9 Anemia, unspecified; T40.2X5A Adverse effect of other opioids, initial encounter; G89.29 Other chronic pain; M54.9 Dorsalgia, unspecified; F41.9 Anxiety disorder, unspecified; Z53.29 Procedure and treatment not carried out because of patient's decision for other reasons; M19.90 Unspecified osteoarthritis, unspecified site; Z90.49 Acquired absence of other specified parts of digestive tract; Z88.5 Allergy status to narcotic agent; Z80.9 Family history of malignant neoplasm, unspecified; Z88.6 Allergy status to analgesic agent; Z98.84 Bariatric surgery status; Z68.33 Body mass index [BMI] 33.0-33.9, adult; Y92.018 Other place in single-family (private) house as the place of occurrence of the external cause; Z90.710 Acquired absence of both cervix and uterus; Y92.89 Other specified places as the place of occurrence of the external cause
CPT/HCPCS: 82962; G0480; J1170; J2270; J2405; J3480; J7030; Q0092; Q0163

== ENCOUNTER 2017-02-20 16:51 | Emergency (ER) | payer OTHER ==
[~2017-02-20] VITALS: Ht 160 cm; Wt 90.7 kg
[~2017-02-20 16:51] MED LIST changes: +NORCO1 TA2 PO; +PROZAC10 M2 PO; +XANAX XR1 M1 PO
[2017-02-20 18:12] VITALS: BP 154/75
== END 2017-02-20 18:12 | disposition home or self-care (01) ==
LOC: ED 16:51
DX: G89.29 Other chronic pain (principal); M54.5 Low back pain; F11.20 Opioid dependence, uncomplicated; Z88.5 Allergy status to narcotic agent; Z88.8 Allergy status to other drugs, medicaments and biological substances
CPT/HCPCS: J3010

== ENCOUNTER 2017-02-24 19:35 | Emergency (ER) | payer OTHER ==
[2017-02-24 22:40] VITALS: BP 132/88
== END 2017-02-24 22:15 | disposition home or self-care (01) ==
LOC: ED 19:35
DX: G89.29 Other chronic pain (principal); M54.9 Dorsalgia, unspecified; M51.26 Other intervertebral disc displacement, lumbar region; M79.7 Fibromyalgia; Z88.8 Allergy status to other drugs, medicaments and biological substances
CPT/HCPCS: J3010; Q0162

== ENCOUNTER 2017-03-01 02:18 | Emergency (ER) | payer OTHER ==
[2017-03-01 02:43] LABS: BASOPHIL % 0.2 % (0-2)
[2017-03-01 02:57] LABS: CALCIUM 8.2 mg/dL (8.5-10.1); CHLORIDE SERUM 109 mmol/L (98-107); CREATININE SERUM 0.6 mg/dL (0.6-1.0); GFR1 > 60 mL/min; GLUCOSE SERUM 97 mg/dL (74-106); POTASSIUM SERUM 3.6 mmol/L (3.5-5.1); SODIUM SERUM 146 mmol/L (136-145)
[2017-03-01 03:01] LABS: ALBUMIN 3.6 g/dL (3.4-5.0); ALKALINE PHOSPHATASE 137 U/L (46-116); ALT/SGPT 18 U/L (14-59); AST/SGOT 13 U/L (15-37); BILIRUBIN TOTAL 0.3 mg/dL (0.20-1.00); TOTAL PROTEIN, SERUM 7.7 g/dL (6.4-8.2)
[2017-03-01 03:10] LABS: PLATELET COUNT 405 x10^3mcL (130-400); RED CELL DISTRIBUTION WIDTH 18.2 % (11.5-14.5)
[2017-03-01 15:02] VITALS: BP 117/89
== END 2017-03-01 15:02 | disposition home or self-care (01) ==
LOC: ED 02:18
PROVIDERS: Emergency Medicine
DX: F32.9 Major depressive disorder, single episode, unspecified (principal)
CPT/HCPCS: 36415; G0480; Q0092

== ENCOUNTER 2017-03-26 21:27 | Inpatient (IN) | payer OTHER ==
[~2017-03-26] VITALS: Ht 160 cm; Wt 93.7 kg
[~2017-03-26 21:27] MED LIST changes: -PROZAC10 M2 PO
[2017-03-26 22:26] LABS: BASOPHIL % 0.4 % (0-2); PLATELET COUNT 336 x10^3mcL (130-400)
[2017-03-26 22:30] LABS: CALCIUM 8.5 mg/dL (8.5-10.1); CARBON DIOXIDE 29.3 mmol/L (21-32); CHLORIDE SERUM 107 mmol/L (98-107); CREATININE SERUM 0.6 mg/dL (0.6-1.0); GFR1 > 60 mL/min; GLUCOSE SERUM 85 mg/dL (74-106); POTASSIUM SERUM 3.6 mmol/L (3.5-5.1); SODIUM SERUM 143 mmol/L (136-145)
[2017-03-26 22:31] LABS: AMPHETAMINE QUAL UR NONE DETECTED (NEG <=1000)
[2017-03-26 22:34] LABS: ALBUMIN 3.5 g/dL (3.4-5.0); ALKALINE PHOSPHATASE 86 U/L (46-116); ALT/SGPT 16 U/L (14-59); AST/SGOT 22 U/L (15-37); BILIRUBIN TOTAL 0.34 mg/dL (0.20-1.00); TOTAL PROTEIN, SERUM 7.2 g/dL (6.4-8.2)
[2017-03-26 22:35] LABS: RED CELL DISTRIBUTION WIDTH 19.6 % (11.5-14.5)
[2017-03-27 02:39] VITALS: BP 136/81
[2017-03-27 04:20] VITALS: BP 121/73
[2017-03-27 06:14] LABS: CHOLESTEROL/HDL RATIO 4.2
[2017-03-27 06:22] LABS: T3 TOTAL 0.72 ng/mL
[2017-03-27 06:39] LABS: FREE T4 0.73 ng/dL (0.76-1.46); FREE THYROXINE INDEX 2.3 ug/dL (1.4-4.5); T4(THYROXINE) 6.5 ug/dL (4.7-13.3)
[2017-03-27 08:28] VITALS: BP 114/74
[2017-03-27 11:37] VITALS: BP 119/67
[2017-03-27 15:41] VITALS: BP 111/67
[2017-03-27 18:56] LABS: UA SPECIFIC GRAVITY <=1.005 (1.005-1.035); microscopic required? YES; urine erythrocyte 1+ (NEGATIVE)
[2017-03-27 20:52] VITALS: BP 122/63
[2017-03-28 05:27] VITALS: BP 110/70
[2017-03-28 07:08] LABS: BASOPHIL % 0.4 % (0-2); PLATELET COUNT 287 x10^3mcL (130-400)
[2017-03-28 07:10] LABS: RED CELL DISTRIBUTION WIDTH 19.3 % (11.5-14.5)
[2017-03-28 07:20] LABS: CARBON DIOXIDE 24.7 mmol/L (21-32); CHLORIDE SERUM 109 mmol/L (98-107); CREATININE SERUM 0.4 mg/dL (0.6-1.0); GFR1 > 60 mL/min; GLUCOSE SERUM 77 mg/dL (74-106); PHOSPHOROUS 3.7 mg/dL (2.5-4.9); POTASSIUM SERUM 3.7 mmol/L (3.5-5.1); SODIUM SERUM 141 mmol/L (136-145)
[2017-03-28 07:28] LABS: IRON 59 ug/dL (50-170); TOTAL IRON BINDING CAPACITY 344 ug/dL (250-450)
[2017-03-28 07:57] LABS: RED BLOOD CELLS 3.16 M/mm3 (4.10-5.10)
[2017-03-28 08:21] VITALS: BP 103/60
[2017-03-28 12:50] VITALS: BP 109/62
[2017-03-28 17:12] VITALS: BP 118/72
[2017-03-28 20:06] VITALS: BP 111/77
[2017-03-29 06:04] VITALS: BP 124/68
[2017-03-29 10:07] VITALS: BP 119/71
[2017-03-29 21:54] VITALS: BP 125/72
[2017-03-30 05:55] VITALS: BP 109/62
[2017-03-30 07:00] LABS: BASOPHIL % 0.4 % (0-2); PLATELET COUNT 304 x10^3mcL (130-400)
[2017-03-30 07:03] LABS: RED CELL DISTRIBUTION WIDTH 20.3 % (11.5-14.5)
[2017-03-30 07:04] LABS: rbc morphology (normal/abnorm) ABNORMAL (NORMAL)
[2017-03-30 07:25] LABS: CALCIUM 8.1 mg/dL (8.5-10.1); CARBON DIOXIDE 27.6 mmol/L (21-32); CHLORIDE SERUM 106 mmol/L (98-107); CREATININE SERUM 0.5 mg/dL (0.6-1.0); GFR1 > 60 mL/min; GLUCOSE SERUM 79 mg/dL (74-106); MAGNESIUM 1.8 mg/dL (1.8-2.4); PHOSPHOROUS 3.4 mg/dL (2.5-4.9); POTASSIUM SERUM 3.7 mmol/L (3.5-5.1); SODIUM SERUM 138 mmol/L (136-145)
[2017-03-30 09:19] VITALS: BP 111/63
[2017-03-30 13:26] VITALS: BP 123/68
[2017-03-30 20:23] VITALS: BP 104/62
[2017-03-31 05:47] VITALS: BP 100/60
[2017-03-31 07:02] LABS: BASOPHIL % 0.3 % (0-2); PLATELET COUNT 333 x10^3mcL (130-400)
[2017-03-31 07:03] LABS: RED CELL DISTRIBUTION WIDTH 19.9 % (11.5-14.5)
[2017-03-31 08:39] VITALS: BP 108/63
[2017-03-31 14:03] VITALS: BP 135/73
[2017-03-31 17:26] VITALS: BP 112/65
[2017-03-31 20:51] VITALS: BP 133/73
[2017-04-01 05:31] VITALS: BP 105/57
[2017-04-01 06:00] LABS: BASOPHIL % 0.2 % (0-2); PLATELET COUNT 310 x10^3mcL (130-400)
[2017-04-01 06:18] LABS: CALCIUM 8.1 mg/dL (8.5-10.1); CHLORIDE SERUM 106 mmol/L (98-107); CREATININE SERUM 0.5 mg/dL (0.6-1.0); GFR1 > 60 mL/min; GLUCOSE SERUM 79 mg/dL (74-106); POTASSIUM SERUM 3.7 mmol/L (3.5-5.1); SODIUM SERUM 138 mmol/L (136-145)
[2017-04-01 06:38] LABS: RED CELL DISTRIBUTION WIDTH 20.9 % (11.5-14.5)
[2017-04-01 08:46] VITALS: BP 104/57
[2017-04-01 16:54] VITALS: BP 116/65
[2017-04-01 22:02] VITALS: BP 122/78
[2017-04-02 05:30] VITALS: BP 107/55
[2017-04-02 06:13] LABS: CALCIUM 8.3 mg/dL (8.5-10.1); CARBON DIOXIDE 26.1 mmol/L (21-32); CHLORIDE SERUM 107 mmol/L (98-107); CREATININE SERUM 0.5 mg/dL (0.6-1.0); GFR1 > 60 mL/min; GLUCOSE SERUM 82 mg/dL (74-106); POTASSIUM SERUM 3.9 mmol/L (3.5-5.1); SODIUM SERUM 140 mmol/L (136-145)
[2017-04-02 06:25] LABS: PLATELET COUNT 320 x10^3mcL (130-400); RED CELL DISTRIBUTION WIDTH 20.4 % (11.5-14.5)
[2017-04-02 10:05] LABS: BAND NEUTROPHIL 1 % (0-10); BASOPHIL 0 % (0-2); MONOCYTE 6 % (0-7); PLATELET MORPHOLOGY LARGE PLATELET SEEN; SEGMENTED NEUTROPHILS 66 % (37-75); rbc morphology (normal/abnorm) ABNORMAL (NORMAL)
[2017-04-02 11:30] VITALS: BP 108/58
[2017-04-02 13:33] VITALS: BP 94/61
[2017-04-02 19:08] VITALS: BP 106/54
[2017-04-02 21:50] VITALS: BP 118/73
[2017-04-03 06:09] VITALS: BP 126/74
[2017-04-03 06:24] LABS: CALCIUM 8.5 mg/dL (8.5-10.1); CARBON DIOXIDE 24.4 mmol/L (21-32); CHLORIDE SERUM 106 mmol/L (98-107); CREATININE SERUM 0.5 mg/dL (0.6-1.0); GFR1 > 60 mL/min; GLUCOSE SERUM 81 mg/dL (74-106); POTASSIUM SERUM 3.9 mmol/L (3.5-5.1); SODIUM SERUM 137 mmol/L (136-145)
[2017-04-03 06:43] LABS: BASOPHIL % 0.4 % (0-2); PLATELET COUNT 362 x10^3mcL (130-400)
[2017-04-03 06:46] LABS: RED CELL DISTRIBUTION WIDTH 20.4 % (11.5-14.5)
[2017-04-03 09:36] LABS: rbc morphology (normal/abnorm) ABNORMAL (NORMAL)
[2017-04-03 10:20] VITALS: BP 101/60
[2017-04-03] MEDS ORDERED: FLO4 PO (16:08)
[2017-04-03] MEDS ORDERED: ELA50 PO (16:11)
[2017-04-03] MEDS ORDERED: NEXIUM20 MG PO (16:16)
[2017-04-03] MEDS ORDERED: PERCOCET1 TAB PO (16:18)
[2017-04-03] MEDS ORDERED: PERCOCET1 TA5 PO (16:43)
[2017-04-03] MEDS ORDERED: LEXAPRO20 MG PO (16:47)
[2017-04-03] MEDS ORDERED: PROZAC10 M2 PO (16:48)
[2017-04-03 16:51] VITALS: BP 101/60
== END 2017-04-03 18:23 | disposition home or self-care (01) | DRG 917 ==
LOC: ED 21:27 → MU 03-27 01:58 → IC 03-27 01:58 → DU 03-27 17:56 → MU 03-28 06:44 → DU 03-28 20:30 → MU 03-29 11:50
PROVIDERS: Emergency Medicine; Family Medicine Sports Medicine; ADMIT Family Medicine
DX: T40.2X2A Poisoning by other opioids, intentional self-harm, initial encounter (principal); G92 Toxic encephalopathy; N17.0 Acute kidney failure with tubular necrosis; R45.851 Suicidal ideations; F33.9 Major depressive disorder, recurrent, unspecified; E44.0 Moderate protein-calorie malnutrition; T51.91XA Toxic effect of unspecified alcohol, accidental (unintentional), initial encounter; D64.9 Anemia, unspecified; G89.29 Other chronic pain; M79.7 Fibromyalgia; Z68.36 Body mass index [BMI] 36.0-36.9, adult; Y92.018 Other place in single-family (private) house as the place of occurrence of the external cause; R31.9 Hematuria, unspecified; E78.1 Pure hyperglyceridemia; F10.20 Alcohol dependence, uncomplicated; Y90.9 Presence of alcohol in blood, level not specified; E02 Subclinical iodine-deficiency hypothyroidism
CPT/HCPCS: 83880; 84439; G0480; J1170; J2405; J7030; Q0092

== ENCOUNTER 2017-06-03 18:43 | Emergency (ER) | payer BC ==
[~2017-06-03] VITALS: Ht 160 cm; Wt 95.7 kg
[~2017-06-03 18:43] MED LIST changes: +CYCLOBENZAPRINE5 MG PO; +ELA50 PO; +FLO4 PO; +FOL1 PO; +LEXAPRO20 MG PO; +NEXIUM20 MG PO; +PERCOCET1 TA5 PO; +PERCOCET1 TAB PO; +PROZAC10 M2 PO; +THERAGRAN-M1 TA4 PO; +THI100 PO
[2017-06-03 19:02] VITALS: Ht 160 cm; Wt 95.7 kg
[2017-06-03 21:06] LABS: CALCIUM 8.4 mg/dL (8.5-10.1); CARBON DIOXIDE 28.3 mmol/L (21-32); CHLORIDE SERUM 108 mmol/L (98-107); CREATININE SERUM 0.5 mg/dL (0.6-1.0); GFR1 > 60 mL/min; GLUCOSE SERUM 82 mg/dL (74-106); POTASSIUM SERUM 3.6 mmol/L (3.5-5.1); SODIUM SERUM 146 mmol/L (136-145)
[2017-06-03 21:12] LABS: ALBUMIN 3.6 g/dL (3.4-5.0); ALKALINE PHOSPHATASE 100 U/L (46-116); ALT/SGPT 21 U/L (14-59); AST/SGOT 19 U/L (15-37); BILIRUBIN TOTAL 0.51 mg/dL (0.20-1.00); TOTAL PROTEIN, SERUM 7.5 g/dL (6.4-8.2)
[2017-06-03 21:18] LABS: BASOPHIL % 0.5 % (0-2); PLATELET COUNT 313 x10^3mcL (130-400)
[2017-06-03 21:20] LABS: RED CELL DISTRIBUTION WIDTH 20.4 % (11.5-14.5)
[2017-06-03 21:34] LABS: rbc morphology (normal/abnorm) ABNORMAL (NORMAL)
[2017-06-03 22:07] LABS: AMPHETAMINE QUAL UR NONE DETECTED (NEG <=1000)
[2017-06-04 00:46] LABS: CALCIUM 7.6 mg/dL (8.5-10.1); CARBON DIOXIDE 24.1 mmol/L (21-32); CHLORIDE SERUM 109 mmol/L (98-107); CREATININE SERUM 0.5 mg/dL (0.6-1.0); GFR1 > 60 mL/min; GLUCOSE SERUM 76 mg/dL (74-106); POTASSIUM SERUM 3.6 mmol/L (3.5-5.1); SODIUM SERUM 144 mmol/L (136-145)
[2017-06-04 07:07] VITALS: BP 143/87
== END 2017-06-04 07:07 | disposition home or self-care (01) ==
LOC: ED 18:43
PROVIDERS: Emergency Medicine
DX: R45.851 Suicidal ideations (principal); F10.129 Alcohol abuse with intoxication, unspecified; F32.9 Major depressive disorder, single episode, unspecified; F41.9 Anxiety disorder, unspecified; Z90.710 Acquired absence of both cervix and uterus; Z88.5 Allergy status to narcotic agent; Z88.6 Allergy status to analgesic agent
CPT/HCPCS: G0480

== ENCOUNTER 2017-06-18 03:04 | Emergency (ER) | payer BC ==
[~2017-06-18] VITALS: Ht 160 cm; Wt 92.7 kg
[2017-06-18 03:32] VITALS: BP 165/107; Ht 160 cm; Wt 92.7 kg
== END 2017-06-18 06:00 | disposition left against medical advice (07) ==
LOC: ED 03:04
DX: Z53.21 Procedure and treatment not carried out due to patient leaving prior to being seen by health care provider (principal)

== ENCOUNTER 2017-07-18 06:46 | Inpatient (IN) | payer BC ==
[~2017-07-18] VITALS: Ht 160 cm; Wt 90.0 kg
[2017-07-18 08:03] LABS: BASOPHIL % 0.7 % (0-2)
[2017-07-18 08:07] LABS: PLATELET COUNT 408 x10^3mcL (130-400); RED CELL DISTRIBUTION WIDTH 21.9 % (11.5-14.5)
[2017-07-18 08:14] LABS: ALKALINE PHOSPHATASE 125 U/L (46-116); ALT/SGPT 24 U/L (14-59); AMYLASE 52 U/L (25-115); AST/SGOT 32 U/L (15-37); CARBON DIOXIDE 17.2 mmol/L (21-32); CHLORIDE SERUM 101 mmol/L (98-107); CREATININE SERUM 0.6 mg/dL (0.6-1.0); GFR1 > 60 mL/min; GLUCOSE SERUM 75 mg/dL (74-106); LIPASE 232 IU/L (73-393); MAGNESIUM 1.8 mg/dL (1.8-2.4); SODIUM SERUM 140 mmol/L (136-145); TOTAL PROTEIN, SERUM 7.8 g/dL (6.4-8.2)
[2017-07-18 08:22] LABS: microscopic required? YES; urine erythrocyte 2+ (NEGATIVE)
[2017-07-18 08:32] LABS: CALCIUM 8.2 mg/dL (8.5-10.1)
[2017-07-18 08:33] LABS: POTASSIUM SERUM 2.8 mmol/L (3.5-5.1)
[2017-07-18 09:26] LABS: AMPHETAMINE QUAL UR NONE DETECTED (NEG <=1000)
[2017-07-18 09:55] LABS: CHOLESTEROL/HDL RATIO 2.8; PHOSPHOROUS 2.8 mg/dL (2.5-4.9)
[2017-07-18 10:08] LABS: FREE T4 0.9 ng/dL (0.76-1.46); FREE THYROXINE INDEX 2.6 ug/dL (1.4-4.5); T4(THYROXINE) 7.3 ug/dL (4.7-13.3)
[2017-07-18 10:21] LABS: T3 TOTAL 1.11 ng/mL
[2017-07-18 12:16] VITALS: BP 160/89
[2017-07-18 13:40] VITALS: BP 160/89
[2017-07-18 16:25] LABS: CARBON DIOXIDE 20.9 mmol/L (21-32); CHLORIDE SERUM 104 mmol/L (98-107); CREATININE SERUM 0.6 mg/dL (0.6-1.0); GFR1 > 60 mL/min; GLUCOSE SERUM 93 mg/dL (74-106); POTASSIUM SERUM 4.2 mmol/L (3.5-5.1); SODIUM SERUM 137 mmol/L (136-145)
[2017-07-18 18:02] VITALS: BP 109/65
[2017-07-18 19:57] VITALS: BP 111/70
[2017-07-19 05:26] VITALS: BP 109/66
[2017-07-19 06:35] LABS: CHLORIDE SERUM 105 mmol/L (98-107); CREATININE SERUM 0.5 mg/dL (0.6-1.0); GFR1 > 60 mL/min; GLUCOSE SERUM 96 mg/dL (74-106); POTASSIUM SERUM 3.7 mmol/L (3.5-5.1); SODIUM SERUM 138 mmol/L (136-145)
[2017-07-19 07:03] LABS: BASOPHIL % 0.2 % (0-2); PLATELET COUNT 259 x10^3mcL (130-400)
[2017-07-19 07:04] LABS: RED CELL DISTRIBUTION WIDTH 21.9 % (11.5-14.5)
[2017-07-19 07:05] LABS: rbc morphology (normal/abnorm) ABNORMAL (NORMAL)
[2017-07-19 09:20] VITALS: BP 109/65
[2017-07-19 14:05] VITALS: BP 109/66
[2017-07-19 17:30] VITALS: BP 147/89
[2017-07-19 20:52] VITALS: BP 112/69
[2017-07-20 05:33] LABS: BASOPHIL % 0.5 % (0-2); PLATELET COUNT 229 x10^3mcL (130-400)
[2017-07-20 05:42] LABS: RED CELL DISTRIBUTION WIDTH 22.2 % (11.5-14.5)
[2017-07-20 05:44] LABS: CARBON DIOXIDE 23.3 mmol/L (21-32); CHLORIDE SERUM 107 mmol/L (98-107); CREATININE SERUM 0.5 mg/dL (0.6-1.0); GFR1 > 60 mL/min; GLUCOSE SERUM 89 mg/dL (74-106); POTASSIUM SERUM 3.7 mmol/L (3.5-5.1); SODIUM SERUM 141 mmol/L (136-145)
[2017-07-20 05:59] VITALS: BP 91/47
[2017-07-20 06:04] LABS: rbc morphology (normal/abnorm) ABNORMAL (NORMAL)
[2017-07-20] MEDS ORDERED: NEU100 PO (10:09)
[2017-07-20] MEDS ORDERED: LEXAPRO10 MG PO (10:09)
[2017-07-20] MEDS ORDERED: SEROQUEL200 MG PO (10:10)
[2017-07-20] MEDS ORDERED: SERO100 PO (10:10)
[2017-07-20] MEDS ORDERED: ATI1 PO (10:10)
[2017-07-20 11:05] VITALS: Ht 160 cm; Wt 90.0 kg
[2017-07-20 11:14] VITALS: BP 125/78
== END 2017-07-20 12:50 | DRG 896 ==
LOC: ED 06:46 → DU 08:26
PROVIDERS: Emergency Medicine; Family Medicine
DX: F10.239 Alcohol dependence with withdrawal, unspecified (principal); N17.0 Acute kidney failure with tubular necrosis; G92 Toxic encephalopathy; N39.0 Urinary tract infection, site not specified; F10.229 Alcohol dependence with intoxication, unspecified; E87.6 Hypokalemia; R80.9 Proteinuria, unspecified; G89.29 Other chronic pain; M54.9 Dorsalgia, unspecified; M79.7 Fibromyalgia; F32.9 Major depressive disorder, single episode, unspecified; M19.90 Unspecified osteoarthritis, unspecified site; F17.210 Nicotine dependence, cigarettes, uncomplicated; E66.01 Morbid (severe) obesity due to excess calories; E66.9 Obesity, unspecified; Y90.1 Blood alcohol level of 20-39 mg/100 ml; Z53.29 Procedure and treatment not carried out because of patient's decision for other reasons; R31.9 Hematuria, unspecified; F41.1 Generalized anxiety disorder; Z79.899 Other long term (current) drug therapy; Z98.84 Bariatric surgery status; Z68.26 Body mass index [BMI] 26.0-26.9, adult; Z88.6 Allergy status to analgesic agent; Z88.5 Allergy status to narcotic agent; Z90.710 Acquired absence of both cervix and uterus; Z90.49 Acquired absence of other specified parts of digestive tract; Z80.9 Family history of malignant neoplasm, unspecified; Z84.89 Family history of other specified conditions; Z56.0 Unemployment, unspecified
CPT/HCPCS: 83880; 84439; 90658; G0480; J0696; J2060; J2405; J3480; J7030; Q0092

== ENCOUNTER 2017-10-15 02:45 | Emergency (ER) | payer BC ==
[~2017-10-15 02:45] MED LIST changes: +ATI1 PO; +LEXAPRO10 MG PO; +NEU100 PO; +SERO100 PO; +SEROQUEL200 MG PO
[2017-10-15 04:39] VITALS: BP 145/89
[2017-10-16] MEDS ORDERED: SEROQUEL400 M1 (03:11)
[2017-10-16] MEDS ORDERED: LEXAPRO20 MG (03:11)
[2017-10-16] MEDS ORDERED: AMBIEN10 MG (03:11)
[2017-10-16] MEDS ORDERED: PERCOCET1 TA5 (03:12)
[2017-10-17] MEDS ORDERED: LIB25 PO (14:43)
[2017-10-17] MEDS ORDERED: FOL1 PO (14:43)
[2017-10-17] MEDS ORDERED: THI100 PO (14:44)
[2017-10-17] MEDS ORDERED: THERA TABS1 TAB PO (14:44)
[2017-10-17] MEDS ORDERED: FLO4 PO (14:56)
== END 2017-10-15 04:39 | disposition home or self-care (01) ==
LOC: ED 02:45
DX: S76.011A Strain of muscle, fascia and tendon of right hip, initial encounter (principal); S20.211A Contusion of right front wall of thorax, initial encounter; G89.29 Other chronic pain; M54.5 Low back pain; Z88.5 Allergy status to narcotic agent; Z88.6 Allergy status to analgesic agent; W01.0XXA Fall on same level from slipping, tripping and stumbling without subsequent striking against object, initial encounter; Y93.89 Activity, other specified; Y92.89 Other specified places as the place of occurrence of the external cause; Y99.8 Other external cause status

== ENCOUNTER 2017-12-01 21:02 | Emergency (ER) | payer BC ==
[~2017-12-01] VITALS: Ht 160 cm; Wt 96.6 kg
[~2017-12-01 21:02] MED LIST changes: +AMBIEN10 MG; +LEXAPRO20 MG; +LIB25 PO; +PERCOCET1 TA5; +SEROQUEL400 M1; +THERA TABS1 TAB PO
[2017-12-01 21:11] VITALS: Ht 160 cm; Wt 96.6 kg
[2017-12-01 21:31] LABS: BASOPHIL % 0.1 % (0-2); PLATELET COUNT 364 x10^3mcL (130-400)
[2017-12-01 21:49] LABS: microscopic required? YES; urine erythrocyte TRACE (NEGATIVE)
[2017-12-01 21:51] LABS: CALCIUM 8.3 mg/dL (8.5-10.1); CARBON DIOXIDE 26.5 mmol/L (21-32); CHLORIDE SERUM 102 mmol/L (98-107); CREATININE SERUM 0.9 mg/dL (0.6-1.0); GFR1 > 60 mL/min; GLUCOSE SERUM 78 mg/dL (74-106); POTASSIUM SERUM 3.4 mmol/L (3.5-5.1); SODIUM SERUM 138 mmol/L (136-145)
[2017-12-01 21:59] LABS: ALBUMIN 3.5 g/dL (3.4-5.0); ALKALINE PHOSPHATASE 139 U/L (46-116); ALT/SGPT 63 U/L (14-59); AST/SGOT 98 U/L (15-37); BILIRUBIN TOTAL 0.5 mg/dL (0.20-1.00); TOTAL PROTEIN, SERUM 7.3 g/dL (6.4-8.2)
[2017-12-01 21:59] LABS: AMPHETAMINE QUAL UR NONE DETECTED (See below)
[2017-12-02 07:02] VITALS: BP 102/65
== END 2017-12-02 07:02 | disposition home or self-care (01) ==
LOC: ED 21:02
PROVIDERS: Emergency Medicine
DX: T42.4X1A Poisoning by benzodiazepines, accidental (unintentional), initial encounter (principal); M62.82 Rhabdomyolysis; G89.29 Other chronic pain; M54.9 Dorsalgia, unspecified; Z88.5 Allergy status to narcotic agent; Z88.6 Allergy status to analgesic agent; Z88.8 Allergy status to other drugs, medicaments and biological substances; Z90.710 Acquired absence of both cervix and uterus; Z90.49 Acquired absence of other specified parts of digestive tract; Y92.89 Other specified places as the place of occurrence of the external cause
CPT/HCPCS: G0480; J7030

== ENCOUNTER 2018-01-25 18:38 | Emergency (ER) | payer BC ==
[~2018-01-25] VITALS: Ht 160 cm; Wt 97.1 kg
[2018-01-25 18:44] VITALS: Ht 160 cm; Wt 97.1 kg
[2018-01-25 19:56] LABS: BASOPHIL % 0.1 % (0-2); PLATELET COUNT 269 x10^3mcL (130-400)
[2018-01-25 19:57] LABS: RED CELL DISTRIBUTION WIDTH 22.9 % (11.5-14.5)
[2018-01-25 20:08] LABS: ALBUMIN 3.9 g/dL (3.4-5.0); ALKALINE PHOSPHATASE 137 U/L (46-116); ALT/SGPT 17 U/L (14-59); AST/SGOT 20 U/L (15-37); BILIRUBIN TOTAL 1.14 mg/dL (0.20-1.00); CALCIUM 8.3 mg/dL (8.5-10.1); CARBON DIOXIDE 16.1 mmol/L (21-32); CHLORIDE SERUM 100 mmol/L (98-107); CREATININE SERUM 0.6 mg/dL (0.6-1.0); GFR1 > 60 mL/min; GLUCOSE SERUM 78 mg/dL (74-106); SODIUM SERUM 135 mmol/L (136-145); TOTAL PROTEIN, SERUM 7.8 g/dL (6.4-8.2)
[2018-01-25 20:10] LABS: POTASSIUM SERUM 2.6 mmol/L (3.5-5.1)
[2018-01-25 20:51] LABS: AMPHETAMINE QUAL UR NONE DETECTED (See below)
[2018-01-26 02:01] LABS: CALCIUM 7.3 mg/dL (8.5-10.1); CARBON DIOXIDE 21.2 mmol/L (21-32); CHLORIDE SERUM 104 mmol/L (98-107); CREATININE SERUM 0.4 mg/dL (0.6-1.0); GFR1 > 60 mL/min; GLUCOSE SERUM 81 mg/dL (74-106); POTASSIUM SERUM 4.2 mmol/L (3.5-5.1); SODIUM SERUM 135 mmol/L (136-145)
[2018-01-26 02:23] VITALS: BP 133/75
== END 2018-01-26 02:23 | disposition home or self-care (01) ==
LOC: ED 18:38
PROVIDERS: Emergency Medicine
DX: E87.6 Hypokalemia (principal); E83.42 Hypomagnesemia; R29.0 Tetany; E87.2 Acidosis
CPT/HCPCS: 83880; G0480; J2060; J2405; J3411; J3475; J3480; J3490; J7030; J7050

== ENCOUNTER 2018-03-24 19:27 | Emergency (ER) | payer BC ==
[~2018-03-24] VITALS: Ht 160 cm; Wt 99.8 kg
[2018-03-24 19:37] VITALS: Ht 160 cm; Wt 99.8 kg
[2018-03-24 21:18] LABS: BASOPHIL % 1.2 % (0-2); PLATELET COUNT 529 x10^3mcL (130-400); RED CELL DISTRIBUTION WIDTH 23.5 % (11.5-14.5)
[2018-03-24 21:23] LABS: CALCIUM 8.8 mg/dL (8.5-10.1); CHLORIDE SERUM 108 mmol/L (98-107); CREATININE SERUM 0.5 mg/dL (0.6-1.0); GFR1 > 60 mL/min; GLUCOSE SERUM 87 mg/dL (74-106); POTASSIUM SERUM 3.3 mmol/L (3.5-5.1); SODIUM SERUM 147 mmol/L (136-145)
[2018-03-24 21:30] LABS: ALBUMIN 3.5 g/dL (3.4-5.0); ALKALINE PHOSPHATASE 126 U/L (46-116); ALT/SGPT 39 U/L (14-59); AST/SGOT 34 U/L (15-37); BILIRUBIN TOTAL 0.4 mg/dL (0.20-1.00); TOTAL PROTEIN, SERUM 7.5 g/dL (6.4-8.2)
[2018-03-24 21:46] LABS: rbc morphology (normal/abnorm) ABNORMAL (NORMAL)
[2018-03-25 00:41] VITALS: BP 101/64
== END 2018-03-25 01:10 | disposition home or self-care (01) ==
LOC: ED 19:27
PROVIDERS: Emergency Medicine
DX: G89.29 Other chronic pain (principal); M54.5 Low back pain; F10.129 Alcohol abuse with intoxication, unspecified; E87.6 Hypokalemia; E87.1 Hypo-osmolality and hyponatremia; F41.9 Anxiety disorder, unspecified; F32.9 Major depressive disorder, single episode, unspecified; Z88.6 Allergy status to analgesic agent; Z88.5 Allergy status to narcotic agent; Z90.710 Acquired absence of both cervix and uterus; Z90.49 Acquired absence of other specified parts of digestive tract
CPT/HCPCS: 36415

== ENCOUNTER 2018-05-15 01:37 | Emergency (ER) | payer BC ==
[~2018-05-15] VITALS: Ht 160 cm; Wt 100.7 kg
[2018-05-15 01:43] VITALS: Ht 160 cm; Wt 100.7 kg
[2018-05-15 02:33] LABS: BASOPHIL % 0.1 % (0-2); PLATELET COUNT 383 x10^3mcL (130-400)
[2018-05-15 02:34] LABS: RED CELL DISTRIBUTION WIDTH 19.8 % (11.5-14.5)
[2018-05-15 02:49] LABS: CALCIUM 8.3 mg/dL (8.5-10.1); CARBON DIOXIDE 23.8 mmol/L (21-32); CHLORIDE SERUM 104 mmol/L (98-107); CREATININE SERUM 0.6 mg/dL (0.6-1.0); GFR1 > 60 mL/min; GLUCOSE SERUM 83 mg/dL (74-106); POTASSIUM SERUM 3.9 mmol/L (3.5-5.1); SODIUM SERUM 139 mmol/L (136-145)
[2018-05-15 02:53] LABS: ALBUMIN 3.6 g/dL (3.4-5.0); ALKALINE PHOSPHATASE 119 U/L (46-116); ALT/SGPT 23 U/L (14-59); AST/SGOT 19 U/L (15-37); BILIRUBIN TOTAL 0.34 mg/dL (0.20-1.00); LIPASE 169 IU/L (73-393); TOTAL PROTEIN, SERUM 6.7 g/dL (6.4-8.2); TRIGLYCERIDES 91 mg/dL (<150)
[2018-05-15 02:54] LABS: CHOLESTEROL 129 mg/dL (<200); HDL CHOLESTEROL 26 mg/dL (40-60)
[2018-05-15 03:12] LABS: FREE T4 1.1 ng/dL (0.76-1.46); FREE THYROXINE INDEX 2.7 ug/dL (1.4-4.5); T4(THYROXINE) 7.4 ug/dL (4.7-13.3)
[2018-05-15 03:24] LABS: T3 TOTAL 2.18 ng/mL
[2018-05-15 06:30] VITALS: BP 134/86
== END 2018-05-15 06:30 | disposition home or self-care (01) ==
LOC: ED 01:37
PROVIDERS: Specialist
DX: R07.89 Other chest pain (principal); M25.512 Pain in left shoulder; Z88.5 Allergy status to narcotic agent; Z88.6 Allergy status to analgesic agent; Z90.710 Acquired absence of both cervix and uterus; Z90.49 Acquired absence of other specified parts of digestive tract; F41.9 Anxiety disorder, unspecified; G89.29 Other chronic pain; M54.9 Dorsalgia, unspecified; M79.7 Fibromyalgia; Z98.890 Other specified postprocedural states
CPT/HCPCS: 83880; 84439; J2060; J2270; J2405; J7030; Q0092

== ENCOUNTER 2018-10-08 19:31 | Emergency (ER) | payer BC ==
[~2018-10-08] VITALS: Ht 160 cm; Wt 91.6 kg
[2018-10-08 19:51] VITALS: Ht 160 cm; Wt 91.6 kg
[2018-10-08 20:54] LABS: ALBUMIN 3.6 g/dL (3.4-5.0); ALKALINE PHOSPHATASE 99 U/L (46-116); ALT/SGPT 21 U/L (14-59); AST/SGOT 19 U/L (15-37); BILIRUBIN TOTAL 0.7 mg/dL (0.20-1.00); CALCIUM 8.3 mg/dL (8.5-10.1); CARBON DIOXIDE 22.6 mmol/L (21-32); CHLORIDE SERUM 102 mmol/L (98-107); CREATININE SERUM 0.6 mg/dL (0.6-1.0); GFR1 > 60 mL/min; GLUCOSE SERUM 88 mg/dL (74-106); SODIUM SERUM 136 mmol/L (136-145); TOTAL PROTEIN, SERUM 7.2 g/dL (6.4-8.2)
[2018-10-08 20:55] LABS: POTASSIUM SERUM 2.9 mmol/L (3.5-5.1)
[2018-10-08 21:34] VITALS: BP 129/76
== END 2018-10-08 21:34 | disposition home or self-care (01) ==
LOC: ED 19:31
PROVIDERS: Emergency Medicine
DX: K12.1 Other forms of stomatitis (principal); E87.6 Hypokalemia; L29.9 Pruritus, unspecified; F41.9 Anxiety disorder, unspecified; F17.210 Nicotine dependence, cigarettes, uncomplicated; F32.9 Major depressive disorder, single episode, unspecified; Z90.712 Acquired absence of cervix with remaining uterus; Z88.6 Allergy status to analgesic agent; Z88.5 Allergy status to narcotic agent
CPT/HCPCS: 36415

== ENCOUNTER 2018-10-27 03:05 | Emergency (ER) | payer BC ==
[~2018-10-27] VITALS: Ht 160 cm; Wt 90.0 kg
[2018-10-27 03:08] VITALS: Ht 160 cm; Wt 90.0 kg
[2018-10-27 07:02] VITALS: BP 142/82
== END 2018-10-27 07:02 | disposition home or self-care (01) ==
LOC: ED 03:05
DX: J20.9 Acute bronchitis, unspecified (principal); F17.210 Nicotine dependence, cigarettes, uncomplicated; G89.29 Other chronic pain; M79.7 Fibromyalgia; F32.9 Major depressive disorder, single episode, unspecified; Z90.710 Acquired absence of both cervix and uterus; Z88.6 Allergy status to analgesic agent; Z88.5 Allergy status to narcotic agent; Z88.8 Allergy status to other drugs, medicaments and biological substances
CPT/HCPCS: 99406; J2060; Q0092

== ENCOUNTER 2018-11-16 04:20 | Emergency (ER) | payer BC ==
[~2018-11-16] VITALS: Ht 160 cm; Wt 87.5 kg
[2018-11-16 04:38] VITALS: Ht 160 cm; Wt 87.5 kg
[2018-11-16 05:16] LABS: BASOPHIL % 0.5 % (0-2)
[2018-11-16 05:17] LABS: PLATELET COUNT 420 x10^3mcL (130-400); RED CELL DISTRIBUTION WIDTH 19.9 % (11.5-14.5)
[2018-11-16 05:27] LABS: CALCIUM 8.7 mg/dL (8.5-10.1); CARBON DIOXIDE 23.6 mmol/L (21-32); CHLORIDE SERUM 114 mmol/L (98-107); CREATININE SERUM 0.6 mg/dL (0.6-1.0); GFR1 > 60 mL/min; GLUCOSE SERUM 85 mg/dL (74-106); POTASSIUM SERUM 3.9 mmol/L (3.5-5.1); SODIUM SERUM 148 mmol/L (136-145)
[2018-11-16 05:32] LABS: ALBUMIN 3.7 g/dL (3.4-5.0); ALKALINE PHOSPHATASE 102 U/L (46-116); ALT/SGPT 16 U/L (14-59); AST/SGOT 10 U/L (15-37); BILIRUBIN TOTAL 0.39 mg/dL (0.20-1.00); TOTAL PROTEIN, SERUM 7.3 g/dL (6.4-8.2)
[2018-11-16 08:03] VITALS: BP 113/68
[2018-11-16 08:10] LABS: UA SPECIFIC GRAVITY <=1.005 (1.005-1.035); microscopic required? YES; urine erythrocyte TRACE (NEGATIVE)
[2018-11-16 08:18] LABS: AMPHETAMINE QUAL UR NONE DETECTED (See below)
== END 2018-11-16 08:26 | disposition home or self-care (01) ==
LOC: ED 04:20
PROVIDERS: Specialist
DX: F10.129 Alcohol abuse with intoxication, unspecified (principal); F32.9 Major depressive disorder, single episode, unspecified; F41.9 Anxiety disorder, unspecified; M51.36 Other intervertebral disc degeneration, lumbar region; G89.29 Other chronic pain; Z98.84 Bariatric surgery status; Z90.49 Acquired absence of other specified parts of digestive tract; Z90.710 Acquired absence of both cervix and uterus; Z88.6 Allergy status to analgesic agent; Z88.5 Allergy status to narcotic agent
CPT/HCPCS: 36415; G0480

== ENCOUNTER 2018-12-20 22:07 | Emergency (ER) | payer MEDICAID ==
[~2018-12-20] VITALS: Ht 160 cm; Wt 90.7 kg
[2018-12-20 22:12] VITALS: Ht 160 cm; Wt 90.7 kg
[2018-12-20 22:41] LABS: BASOPHIL % 0.3 % (0-2); PLATELET COUNT 263 x10^3mcL (130-400)
[2018-12-20 22:59] LABS: RED CELL DISTRIBUTION WIDTH 22.7 % (11.5-14.5)
[2018-12-20 23:03] LABS: rbc morphology (normal/abnorm) ABNORMAL (NORMAL)
[2018-12-20 23:04] LABS: CARBON DIOXIDE 21.8 mmol/L (21-32); CHLORIDE SERUM 107 mmol/L (98-107); CREATININE SERUM 0.5 mg/dL (0.6-1.0); GFR1 > 60 mL/min; GLUCOSE SERUM 103 mg/dL (74-106); SODIUM SERUM 142 mmol/L (136-145)
[2018-12-20 23:08] LABS: ALBUMIN 3.8 g/dL (3.4-5.0); ALKALINE PHOSPHATASE 112 U/L (46-116); ALT/SGPT 23 U/L (14-59); AST/SGOT 22 U/L (15-37); BILIRUBIN TOTAL 0.59 mg/dL (0.20-1.00); TOTAL PROTEIN, SERUM 7.3 g/dL (6.4-8.2)
[2018-12-21 00:17] LABS: AMPHETAMINE QUAL UR NONE DETECTED (See below)
[2018-12-21 03:14] VITALS: BP 142/86
== END 2018-12-21 03:14 | disposition home or self-care (01) ==
LOC: ED 22:07
PROVIDERS: Emergency Medicine
DX: T42.6X2A Poisoning by other antiepileptic and sedative-hypnotic drugs, intentional self-harm, initial encounter (principal); T42.4X2A Poisoning by benzodiazepines, intentional self-harm, initial encounter; F32.9 Major depressive disorder, single episode, unspecified; F41.9 Anxiety disorder, unspecified; G89.29 Other chronic pain; M79.7 Fibromyalgia; Z90.711 Acquired absence of uterus with remaining cervical stump; Z90.49 Acquired absence of other specified parts of digestive tract; Z98.890 Other specified postprocedural states; Z88.6 Allergy status to analgesic agent; Y92.89 Other specified places as the place of occurrence of the external cause
CPT/HCPCS: 36415; G0480; J3010; J7030

== ENCOUNTER 2019-01-22 17:27 | Emergency (ER) | payer OTHER ==
[~2019-01-22] VITALS: Ht 160 cm; Wt 92.5 kg
[2019-01-22 17:59] VITALS: Ht 160 cm; Wt 92.5 kg
[2019-01-22 20:15] VITALS: BP 148/99
== END 2019-01-22 20:15 | disposition home or self-care (01) ==
LOC: ED 17:27
DX: M54.42 Lumbago with sciatica, left side (principal); R51 Headache; M79.7 Fibromyalgia; F32.9 Major depressive disorder, single episode, unspecified; Z90.710 Acquired absence of both cervix and uterus; Z90.49 Acquired absence of other specified parts of digestive tract; Z98.890 Other specified postprocedural states; Z88.6 Allergy status to analgesic agent; Z88.1 Allergy status to other antibiotic agents

== ENCOUNTER 2019-02-13 17:12 | Emergency (ER) | payer OTHER ==
[~2019-02-13] VITALS: Ht 160 cm; Wt 89.4 kg
[2019-02-13 17:21] VITALS: Ht 160 cm; Wt 89.4 kg
[2019-02-13 18:06] LABS: BASOPHIL % 0.3 % (0-2); PLATELET COUNT 355 x10^3mcL (130-400)
[2019-02-13 18:10] LABS: CALCIUM 8.3 mg/dL (8.5-10.1); CARBON DIOXIDE 20.8 mmol/L (21-32); CHLORIDE SERUM 101 mmol/L (98-107); CREATININE SERUM 0.5 mg/dL (0.6-1.0); GFR1 > 60 mL/min; GLUCOSE SERUM 89 mg/dL (74-106); POTASSIUM SERUM 3.2 mmol/L (3.5-5.1); SODIUM SERUM 141 mmol/L (136-145)
[2019-02-13 18:11] LABS: RED CELL DISTRIBUTION WIDTH 23.1 % (11.5-14.5)
[2019-02-13 18:14] LABS: ALBUMIN 3.6 g/dL (3.4-5.0); ALKALINE PHOSPHATASE 109 U/L (46-116); ALT/SGPT 17 U/L (14-59); AST/SGOT 18 U/L (15-37); BILIRUBIN TOTAL 0.78 mg/dL (0.20-1.00); MAGNESIUM 1.6 mg/dL (1.8-2.4); TOTAL PROTEIN, SERUM 7.5 g/dL (6.4-8.2)
[2019-02-13 18:35] LABS: rbc morphology (normal/abnorm) ABNORMAL (NORMAL)
[2019-02-13 20:25] VITALS: BP 133/77
== END 2019-02-13 20:25 | disposition home or self-care (01) ==
LOC: ED 17:12
PROVIDERS: Emergency Medicine
DX: E87.6 Hypokalemia (principal); E83.42 Hypomagnesemia; R25.2 Cramp and spasm; I10 Essential (primary) hypertension; Z88.6 Allergy status to analgesic agent; Z88.1 Allergy status to other antibiotic agents; Z88.5 Allergy status to narcotic agent; Z90.710 Acquired absence of both cervix and uterus; Z90.49 Acquired absence of other specified parts of digestive tract; Z95.5 Presence of coronary angioplasty implant and graft
CPT/HCPCS: 36415; G0480; J1885; Q0163

== ENCOUNTER 2019-02-14 17:11 | Emergency (ER) | payer OTHER ==
[~2019-02-14] VITALS: Ht 160 cm; Wt 89.4 kg
[2019-02-14 17:19] VITALS: Ht 160 cm; Wt 89.4 kg
[2019-02-14 18:06] LABS: CALCIUM 8.4 mg/dL (8.5-10.1); CARBON DIOXIDE 21.8 mmol/L (21-32); CHLORIDE SERUM 102 mmol/L (98-107); CREATININE SERUM 0.8 mg/dL (0.6-1.0); GFR1 > 60 mL/min; GLUCOSE SERUM 112 mg/dL (74-106); POTASSIUM SERUM 4.1 mmol/L (3.5-5.1); SODIUM SERUM 137 mmol/L (136-145)
[2019-02-14 18:10] LABS: ALBUMIN 3.4 g/dL (3.4-5.0); ALKALINE PHOSPHATASE 101 U/L (46-116); ALT/SGPT 14 U/L (14-59); AST/SGOT 22 U/L (15-37); BILIRUBIN TOTAL 1.92 mg/dL (0.20-1.00); MAGNESIUM 1.9 mg/dL (1.8-2.4); TOTAL PROTEIN, SERUM 7.2 g/dL (6.4-8.2)
[2019-02-14 18:15] LABS: BASOPHIL % 0.2 % (0-2); PLATELET COUNT 283 x10^3mcL (130-400); RED CELL DISTRIBUTION WIDTH 23.8 % (11.5-14.5)
[2019-02-14 19:18] LABS: rbc morphology (normal/abnorm) ABNORMAL (NORMAL)
[2019-02-14 20:34] VITALS: BP 115/75
== END 2019-02-14 20:34 | disposition home or self-care (01) ==
LOC: ED 17:11
PROVIDERS: Emergency Medicine
DX: F10.129 Alcohol abuse with intoxication, unspecified (principal); R53.1 Weakness; R42 Dizziness and giddiness; G89.29 Other chronic pain; M54.9 Dorsalgia, unspecified; F41.9 Anxiety disorder, unspecified; Z88.6 Allergy status to analgesic agent; Z88.5 Allergy status to narcotic agent; Z88.1 Allergy status to other antibiotic agents
CPT/HCPCS: G0480; J2060

== ENCOUNTER 2019-04-07 20:29 | Emergency (ER) | payer OTHER ==
[~2019-04-07] VITALS: Ht 160 cm; Wt 84.4 kg
[2019-04-07 20:33] VITALS: Ht 160 cm; Wt 84.4 kg
[2019-04-08 00:21] LABS: BASOPHIL % 0.8 % (0-2)
[2019-04-08 00:25] LABS: PLATELET COUNT 414 x10^3mcL (130-400); RED CELL DISTRIBUTION WIDTH 21.2 % (11.5-14.5)
[2019-04-08 00:35] LABS: CARBON DIOXIDE 21.7 mmol/L (21-32); CHLORIDE SERUM 106 mmol/L (98-107); CREATININE SERUM 0.5 mg/dL (0.6-1.0); GFR1 > 60 mL/min; GLUCOSE SERUM 85 mg/dL (74-106); POTASSIUM SERUM 3.2 mmol/L (3.5-5.1); SODIUM SERUM 143 mmol/L (136-145)
[2019-04-08 00:39] LABS: ALBUMIN 3.7 g/dL (3.4-5.0); ALKALINE PHOSPHATASE 122 U/L (46-116); ALT/SGPT 25 U/L (14-59); AST/SGOT 29 U/L (15-37); BILIRUBIN TOTAL 0.8 mg/dL (0.20-1.00); TOTAL PROTEIN, SERUM 7.4 g/dL (6.4-8.2)
[2019-04-08 01:14] LABS: AMPHETAMINE QUAL UR NONE DETECTED (See below)
[2019-04-08 03:32] VITALS: BP 138/72
== END 2019-04-08 03:32 | disposition home or self-care (01) ==
LOC: ED 20:29
PROVIDERS: Emergency Medicine
DX: R07.89 Other chest pain (principal); F10.120 Alcohol abuse with intoxication, uncomplicated; F32.9 Major depressive disorder, single episode, unspecified; F41.9 Anxiety disorder, unspecified; Z88.5 Allergy status to narcotic agent; Z88.6 Allergy status to analgesic agent; Z98.890 Other specified postprocedural states
CPT/HCPCS: 36415; G0480; Q0092

== ENCOUNTER 2019-08-01 19:50 | Emergency (ER) | payer OTHER ==
[~2019-08-01] VITALS: Ht 160 cm; Wt 83.9 kg
[2019-08-01 19:56] VITALS: Ht 160 cm; Wt 83.9 kg
[2019-08-01 20:52] LABS: BASOPHIL % 0.5 % (0-2)
[2019-08-01 20:53] LABS: PLATELET COUNT 444 x10^3mcL (130-400); RED CELL DISTRIBUTION WIDTH 20.1 % (11.5-14.5)
[2019-08-01 21:13] LABS: CALCIUM 8.6 mg/dL (8.5-10.1); CARBON DIOXIDE 22.6 mmol/L (21-32); CHLORIDE SERUM 104 mmol/L (98-107); CREATININE SERUM 0.6 mg/dL (0.6-1.0); GFR1 > 60 mL/min; GLUCOSE SERUM 96 mg/dL (74-106); POTASSIUM SERUM 3.5 mmol/L (3.5-5.1); SODIUM SERUM 142 mmol/L (136-145)
[2019-08-01 21:19] LABS: ALBUMIN 3.6 g/dL (3.4-5.0); ALKALINE PHOSPHATASE 133 U/L (46-116); ALT/SGPT 36 U/L (14-59); AMYLASE 57 U/L (25-115); AST/SGOT 35 U/L (15-37); BILIRUBIN TOTAL 0.5 mg/dL (0.20-1.00); LIPASE 282 IU/L (73-393); MAGNESIUM 1.8 mg/dL (1.8-2.4); TOTAL PROTEIN, SERUM 7.6 g/dL (6.4-8.2)
[2019-08-02 00:25] VITALS: BP 118/71
== END 2019-08-02 00:25 | disposition home or self-care (01) ==
LOC: ED 19:50
PROVIDERS: Emergency Medicine
DX: T51.91XA Toxic effect of unspecified alcohol, accidental (unintentional), initial encounter (principal); Z88.6 Allergy status to analgesic agent; Z88.5 Allergy status to narcotic agent; Y92.89 Other specified places as the place of occurrence of the external cause
CPT/HCPCS: G0480; J2060; J2405; J2765; J3411; J7030

== ENCOUNTER 2019-11-12 15:46 | Emergency (ER) | payer OTHER ==
[~2019-11-12] VITALS: Ht 160 cm; Wt 86.2 kg
[2019-11-12 15:55] VITALS: Ht 160 cm; Wt 86.2 kg
[2019-11-12 16:14] VITALS: BP 149/91
== END 2019-11-12 16:14 | disposition other institution (70) ==
LOC: ED 15:46
DX: Z02.89 Encounter for other administrative examinations (principal)

== ENCOUNTER 2020-08-20 02:05 | Inpatient (IN) | payer OTHER, SELFPAY ==
[~2020-08-20] VITALS: Ht 160 cm; Wt 91.6 kg
[2020-08-20 02:15] VITALS: Ht 160 cm; Wt 91.6 kg
--- NOTE | 2020-08-20 02:20 | NUR ---
PT WAS BIBA WITH A C/C OF ABD PAIN X2-3 DAYS. PT REPORTS THAT IT FEELS LIKE SHE IS HAVING CONTRACTIONS. PT STATES SHE HAS ALSO BEEN HAVING N/V/D. PT REPORTS THAT SHE HAS NOT EVEN BEEN ABLE TO KEEP WATER DOWN. PT EXPRESSES PAIN UPON PALPATION TO BILATERAL UPPER QUADRANTS. PT AAO X4 RESPIRATIONS E/U NO ACUTE DISTRESS NOTED. PT CONNECTED TO FULL CM WILL CONTINUE TO MONITOR.
[2020-08-20 03:18] LABS: BASOPHIL % 0.4 % (0.2-1.3); PLATELET COUNT 196 x10^3mcL (179-408)
--- NOTE | 2020-08-20 03:53 | NUR ---
PT LAYING SUPINE IN GURNEY IN A POSITION OF COMFORT. PT STATES PAIN HAS DECREASED TO A 2/10. PT STATES IT JUST FEELS MORE TENDER NOW. PT AAO X4 RESPIRATIONS E/U NO DISTRESS NOTED.
[2020-08-20 03:56] LABS: ALBUMIN 4.4 g/dL (3.4-5.0); ALKALINE PHOSPHATASE 145 U/L (46-116); ALT/SGPT 117 U/L (14-59); AST/SGOT 214 U/L (15-37); BILIRUBIN TOTAL 1.2 mg/dL (0.20-1.00); CHLORIDE SERUM 97 mmol/L (98-107); CREATININE SERUM 0.8 mg/dL (0.6-1.0); GFR1 > 60 mL/min; GLUCOSE SERUM 64 mg/dL (74-106); POTASSIUM SERUM 3.4 mmol/L (3.5-5.1); SODIUM SERUM 134 mmol/L (136-145); TOTAL PROTEIN, SERUM 8.4 g/dL (6.4-8.2)
[2020-08-20 03:57] LABS: LIPASE 2763 IU/L (73-393)
[2020-08-20 04:53] LABS: CARBON DIOXIDE 7.4 mmol/L (21-32)
--- NOTE | 2020-08-20 06:12 | NUR ---
PT LAYING SUPINE IN GURNEY IN A POSITION OF COMFORT. PT AAO X4 RESPIRATIONS E/U NO DISTRESS NOTED. PT REPORTS PAIN HAS RETURNED TO 8/10. PT MEDICATED PER MD ORDER FOR PAIN.
--- NOTE | 2020-08-20 06:32 | NUR ---
GAVE REPORT TO JANICE PRIDE TO ASSUME CARE OF PT.
--- NOTE | 2020-08-20 07:15 | NUR ---
REPORT RECEIVED FROM SHANNEN WELLS I WILL ASSUME CARE OF PT.
--- NOTE | 2020-08-20 07:20 | NUR ---
PER RUSSELL PRIDE, PT WAS GOING TO BE TRANSFERRED TO TELE UNIT, AND REPORT WAS GIVEN TO SHANNEN DORADO, STS BECAUSE PCR WAS ORDERED ON PT, PT NEEDS TO BE PLACED IN ISO ROOM. AWAITING BED AT THIS TIME.
--- NOTE | 2020-08-20 07:29 | NUR ---
PT PLACED ON FULL CM, NAD NOTED, CALL LIGHT WITHIN REACH, RESPS E/U, PT EASILY ARROUSABLE. SINUS TACH ON THE MONITOR. PT AFEBRILE, WILL CONTINUE TO MONITOR.
--- NOTE | 2020-08-20 07:45 | NUR ---
RECEIVED REPORT F AUGUSTIN AGUSTIN RN, AWAITING PT ARRIVAL ON UNIT.
--- NOTE | 2020-08-20 07:45 | NUR ---
REPORT GIVEN TO SHANNEN GARZON TO ASSUME CARE OF PT.
[2020-08-20 08:24] VITALS: BP 154/86
--- NOTE | 2020-08-20 08:41 | NUR ---
PT ARRIVED ON UNIT AT 0753 VIA GUERNEY ACCOMPANIED BY RN. PT ABLE TO SELF TRANSFER ONTO BED. VSS. TELE # 13, SR. PT IS A/O X4, MARSHALLESE SPEAKING. LUNG SOUNDS CTA, BREATHING E/U ON RA, O2 SAT 100%. IN NO ACUTE DISTRESS AT THIS TIME. PULSES PALP, NO EDEMA NOTED. PT CURRENLTY WEARING UPPER DENTURES. PT REPORTS HAVING ABD PAIN/DIARRHEA FOR THE PAST WEEK, BECAME UNBEARABLE PAST 3 DAYS. BOWEL [place]OUDNS HYPOACTIVE X4, ABD ROUND, SOFT, TENDER TO PALP. PT REPORTS PAST ALCOHOL ABUSE, WENT TO [facility], QUIT ALCOHOL FOR 90 DAYS, ONLY DRANK AGAIN TO [place] WITH ABD PAIN. LAST DRINK 3 DAYS AGO. GEN WEAKNESS NOTED, PT IS AMBUALTORY, NEEDS SUPPORT WHEN WALKING D/T PAIN. SKIN INTACT, PT HAS ABD SCAR FROM PAST SURGERY. PT REPORTS HX OF DEP AND ANXIETY. PT ALREADY MEDICATED WITH MORPHINE BY ED, PAIN REPORTED 3/10, PT IS OKAY AT THIS LEVEL. D/T NEDING SUPPORT WHEN WALKING, EDUCATED PT ON PRESSING CALL LIGHT WHEN NEEDING TO AMB. EDUCATED PT ON MEDS, IV FLUIDS, SZ PRECAUTIONS IN PLACE. PT VERBALIZES UNDERSTANDING. IV TO RAC PATENT, INFUSING D10 AT 100ML/HR. NO FURTHER CONCERNS VOICED AT THIS TIME. BED IN LOWEST POSTIION, CALL LIGHT IN REACH, BED ALARM ON.
--- NOTE | 2020-08-20 09:27 | NUR ---
PT REQUESTING A WRAP FOR HER LFA, REPORTS A MILD ACHE SIMILAR TO CARPAL TUNNEL FEELING SHE HAS HAD BEFORE. APPLIED JOSÉ MIGUEL BANDAGE TO LFA, PT REPORTS FEELING RELIEF.
[2020-08-20 12:09] VITALS: BP 149/88
--- NOTE | 2020-08-20 12:41 | NUR ---
PAGED DR. BOWENS FOR PAIN MEDS (ORDERS), WAITING FOR CALL BACK
[2020-08-20 13:09] LABS: CALCIUM 8.7 mg/dL (8.5-10.1); CARBON DIOXIDE 10.3 mmol/L (21-32); CHLORIDE SERUM 98 mmol/L (98-107); CREATININE SERUM 0.7 mg/dL (0.6-1.0); GFR1 > 60 mL/min; GLUCOSE SERUM 127 mg/dL (74-106); MAGNESIUM 1.7 mg/dL (1.8-2.4); POTASSIUM SERUM 3.8 mmol/L (3.5-5.1); SODIUM SERUM 129 mmol/L (136-145)
--- NOTE | 2020-08-20 13:10 | NUR ---
SPOKE WITH DR. BOWENS ABOUT PT'S PAIN MEDS, PT ONLY HAS TYLENOL ORDERED. PER GOGO, ORDER MORPHINE 4 MG Q3HRS PRN. WILL INPUT ORDERS ACCORDINGLY.
--- NOTE | 2020-08-20 14:13 | NUR ---
PT SITTING UP IN BED. A/OX4 BREAHING E/U ON RA. IN NO ACUTE RESPIRATORY DISTRESS. PT C/O OF PAIN AND REQUESTS FOR PAIN MED AND MEDICATED PER EMR. WILL CONTINUE TO MONITOR FOR PAIN. IV TO R-ARM PATENT, CDI. NO FURTHER CONCERNS VOICED AT THIS TIME. BED IN LOWEST POSITION, CALL LIGHT IN REACH.
[2020-08-20 15:43] VITALS: BP 111/63
--- NOTE | 2020-08-20 18:37 | NUR ---
PT SLEEPING, EASILY AROUSEABLE. A/OX4 BREATHING E/U ON RA. PT REPORTED THE PAIN MEDICATION WORKED AND FEELS A LO BETTER. PT REPORTS NO CHEST PAIN, PAIN, OR SHORTNESS OF BREATH AT THIS TIME. PT IS IN NO APPARENT RESPIRATORY DISTRESS. IV TO RIGHT AC PATENT, CDI. NO FURTHER CONCERNS VOICED AT THIS TIME. BED IN LOWEST POSITION, CALL LIGHT IN REACH.
--- NOTE | 2020-08-20 20:00 | NUR ---
PT RESTING IN BED, ALERT, ORIENTED X4 AND ABLE TO MAKE NEEDS KNOWN, SKIN WARM AND DRY TO TOUCH, NO SOB NOTED AT THIS TIME, PULSES PALPABLE, NO EDEMA NOTED, O2 SAT 96% ON RA, NO SOB NOTED, PT IS AMBULATORY AND ABLE TO USE THE BATHROOM BY HERSELF, SKIN INTACT, ABD SCAR DUE TO PREVIOUS SX, IV SITE TO RAC WITH 20G, NO S/S INFILTRATION NOTED, FLUSHED WITH NS AND PATENT, ALL NEEDS ANTICIPATED, CALL LIGHT WITHIN REACH, WILL CONTINUE TO MONITOR. PT C/O PA TO THE ABD, MORPHINE 4MG/ML GIVEN PRN, WILL CONTINUE TO MONITOR FOR EFFECTIVENESS.
[2020-08-20 20:24] VITALS: BP 124/72
--- NOTE | 2020-08-21 01:26 | NUR ---
PT SLEEPING, NO SOB, NO DISTRESS NOTED, BREATHING EVEN AND UNLABORED, NO FEVER NOTED AT THIS TIME, NEEDS ATTENDED PROMPTLY, CALL LIGHT WITHIN REACH, WILL CONTINUE TO MONITOR.
[2020-08-21 06:11] VITALS: BP 119/75
--- NOTE | 2020-08-21 06:19 | NUR ---
PT C/O ABD PAIN, MORPHINE GIVEN AT 0600, WILL ENDORSE TO MONITOR EFFECTIVENESS, NO SOB NOTED, NO DISTRESS NOTED, ALL MEDS GIVEN ORDERED, SEIZURE PRECAUTION MAINTAINED, NEEDS ANTICIPATED, CALL LIGHT WITHIN REACH.
[2020-08-21 06:59] LABS: BASOPHIL % 0.4 % (0.2-1.3); PLATELET COUNT 141 x10^3mcL (179-408)
[2020-08-21 07:25] LABS: ALBUMIN 3.6 g/dL (3.4-5.0); ALKALINE PHOSPHATASE 118 U/L (46-116); ALT/SGPT 80 U/L (14-59); AST/SGOT 97 U/L (15-37); BILIRUBIN TOTAL 1.4 mg/dL (0.20-1.00); CALCIUM 9.2 mg/dL (8.5-10.1); CHLORIDE SERUM 101 mmol/L (98-107); CREATININE SERUM 0.6 mg/dL (0.6-1.0); GFR1 > 60 mL/min; GLUCOSE SERUM 90 mg/dL (74-106); MAGNESIUM 1.7 mg/dL (1.8-2.4); POTASSIUM SERUM 3.2 mmol/L (3.5-5.1); SODIUM SERUM 134 mmol/L (136-145); TOTAL PROTEIN, SERUM 7.2 g/dL (6.4-8.2)
[2020-08-21 07:26] LABS: LIPASE 1776 IU/L (73-393)
--- NOTE | 2020-08-21 07:30 | NUR ---
RECEIVED REPORT FROM NOVELTY WORKER NURSE. PTIS A/OX4. TELE #13, ST. PT TAKES MORPHINE IVP PER EMAR FOR PAIN IN UPPER ABDOMEN AND R UPPER QUADRANT. LUNG SOUNDS CLEAR. NO COUGH REPORTED/NOTED. PT REPORTS INTERMITTENT NAUSEA, REGLAN IS SCEDULED PER EMAR. PT RECEIVES ATIVAN PER EMAR FOR ANXIETY. PT IS AMBULATORY; UP TO BEDSIDE COMMODE.IV TO RAC, PATENT, SL. SEIZURE PRECAUTION IS IN PLACE.ALL PROTOCOLS IN PLACE. WILL CONTINUE TO MONITOR.
[2020-08-21 07:52] LABS: RED CELL DISTRIBUTION WIDTH 18.9 % (12.3-17.7)
[2020-08-21 07:54] VITALS: BP 116/67
--- NOTE | 2020-08-21 10:22 | NUR ---
MADE DR BOWENS AWARE ABOUT PCR NEGATIVE. RECEIVED VERBAL ORDER TO D/C DROPLET ISOLATION. MADE DR BOWENS AWARE ABOUT K 3.2 AND PT'S REPORTING NAUSEA AND VOMITING FROM PREVIOUS ADMINISTRATION. MG 1.7. RECEIVED VERBAL ORDER TO GIVE MG IV AND GIVE PO KCL IF PT ABLE TO TOLERATE; OTHERWISE, GIVE IV KCL ONCE.
--- NOTE | 2020-08-21 11:15 | NUR ---
RECEIVED VRBAL ORDER TO START PT ON CLEAR LIQUID DIET AND D/C NPO. WILL MONITOR HOW PT IS TOLERATING DIET.
[2020-08-21 12:09] VITALS: BP 105/61
--- NOTE | 2020-08-21 15:23 | NUR ---
PT TEMP 95.8.PT REPORTED NO CHILLS. APPLIED WARM BLANKETS. RECHECKED TEMPORAL TEMP 96.9. WILL CONTINUE TO MONITOR.
[2020-08-21 16:44] VITALS: BP 101/52
--- NOTE | 2020-08-21 17:54 | NUR ---
PT IS A/OX4. TELE #13, ST. DENIES CP AT THIS TIME. STARTED ON CLEAR LIQUID DIET. PT REPORTS MILD NAUSEA AFTER EATING A MEAL; VOMITING NOT REPORTED/NOTED. SLIGHT INCREASE IN BURNING SENSATION IN UPPER R QUADRANT AFTER EATING. PAIN WAS CONTROLLED BY MORPHINE IVP AROUND THE CLOCK. MAGNISUM SULFATE IV WAS GIVEN FOR 1.7 LEVEL PER MD ORDER. POTASSIUM PO GIVEN FOR 3.2 LEVEL PER EMAR. IV TO RAC, D5NS IS INFUSING AT 125ML/HR. SEIZURE PRECAUTIONS IN PLACE. ALL PROTOCOLS FOLLOWED. WILL ENDORSE CARE TO ONCOMING NURSE.
--- NOTE | 2020-08-21 20:00 | NUR ---
PT RESTING IN BED, ALERT, ORIENTED X4 AND ABLE TO VERBALIZE NEEDS, DENIES CHEST PAIN, PULSES PALPABLE, NO EDEMA NOTED, PT ON RA O2 SAT 96%, NO SOB NOTED AT THIS TIME, AMBULATES TO THE BATHROOM AND ALSO HAS BSC, GENERALIZED WEAKNESS, OLD SCAR TO ABD DUE TO PREVIOUS SX, OTHERWISE SKIN IS INTACT, IV SITE TO RAC WITH 20G INTACT, NO S/S INFILTRATION NOTED, FLUSHED WITH NS AND PATENT, ALL NEEDS ANTICIPATED, CALL LIGHT WITHIN REACH, WILL CONTINUE TO MONITOR.
[2020-08-21 20:18] VITALS: BP 106/58
--- NOTE | 2020-08-22 00:27 | NUR ---
PT C/O PAIN TO ABD, 11/24, MORPHINE PRN IV Q3H GIVEN, WILL EVALUATE AFTER ONE HOUR, NO DISTRESS NOTED AT THIS TIME, CALL LIGHT WITHIN REACH.
[2020-08-22 05:24] VITALS: BP 110/64
--- NOTE | 2020-08-22 05:30 | NUR ---
PT C/O PAIN TO ABD, PAIN 6/10, MORPHINE 4MG IV Q3H PRN GIVEN, WILL REASSESS AFTER ONE HOUR, NO DISTRESS NOTED AT THIS TIME, WILL CONTINUE TO MONITOR,
--- NOTE | 2020-08-22 06:37 | NUR ---
PT RESTING, AWAKE AND ABLE TO MAKE NEEDS KNOWN, PAIN DOWN TO 2/10 FROM 6/10, PT SAID SHE FEELS RELIEVED WITH THE PAIN MED, NO SOB NOTED, BREATHING EVEN AND UNLABORED, ALL NEEDS ATTENDED PROMPTLY, CALL LIGHT WITHIN REACH.
[2020-08-22 07:13] LABS: ALKALINE PHOSPHATASE 105 U/L (46-116); ALT/SGPT 59 U/L (14-59); AST/SGOT 62 U/L (15-37); BASOPHIL % 0.6 % (0.2-1.3); BILIRUBIN TOTAL 0.74 mg/dL (0.20-1.00); CALCIUM 7.9 mg/dL (8.5-10.1); CARBON DIOXIDE 23.3 mmol/L (21-32); CHLORIDE SERUM 107 mmol/L (98-107); CREATININE SERUM 0.5 mg/dL (0.6-1.0); GFR1 > 60 mL/min; GLUCOSE SERUM 104 mg/dL (74-106); LIPASE 1046 IU/L (73-393); MAGNESIUM 1.8 mg/dL (1.8-2.4); SODIUM SERUM 139 mmol/L (136-145); TOTAL PROTEIN, SERUM 6.5 g/dL (6.4-8.2)
[2020-08-22 07:19] LABS: ALBUMIN 3.1 g/dL (3.4-5.0); POTASSIUM SERUM 2.7 mmol/L (3.5-5.1)
--- NOTE | 2020-08-22 07:30 | NUR ---
RECEIVED REPORT FROM MEDICAL AUTHORIZATION SPECIALIST NURSE. PT IS A/OX4. TELE #13, ST. DENIES CP AT THIS TIME. PT C/O PAIN IN UPPER R QUADRANT 10/24. RECEIVES MORPHINE IVP AROUND CLOCK PER EMAR. PT C/O UNABLE TO SLEEP DURING NIGHT. DENIES N/V AT THIS TIME. PT IS AMBULATORY; UP TO BATHROOM; UP TO BEDSIDE COMMODE. IV TO RAC; D5NS IS INFUSING AT 125ML/HR. SEIZURE PRECAUTION IN PLACE. ALL PROTOCOLS IN PLACE; WILL ENDORSE CARE TO ONCOMING NURSE. RECEIVED LAB RESULT K: 2.7; WILL ADMINISTER KCL IV PER EMAR.
[2020-08-22 07:32] LABS: PLATELET COUNT 122 x10^3mcL (179-408)
[2020-08-22 07:55] VITALS: BP 133/68
[2020-08-22 08:12] VITALS: BP 126/71
--- NOTE | 2020-08-22 10:25 | NUR ---
MADE DR MERA AWARE ABOUT K: 2.7. RECEIVED ORDER TO GIVE OF TOTAL 60MEQ KCL IV. FIRST BAG OF 20MEQ IS INFUSING. RECEIVED ORDER TO CHANGE DIET TO FULL LIQUID IF PT IS TOLERATING, ADVANCE TO SOFT/LOW FAT DIET AT DINNER TIME. RECEIVED ORDER TO CHANGE ATIVAN TO PRN. NORCO 5/325 Q4HR PRN FOR MODERATE PAIN. AMBIEN 10MG BEFORE BEDTIME/PRN.
--- NOTE | 2020-08-22 11:05 | NUR ---
POTASSIUM CHLORIDE 20MEQ IV IS INFUSED. SECOND BAG OF 20MEQ IS INFUSING PER EMAR. TOTAL OF 60MEQ IS ORDERED TO BE INFUSED FOR K 2.[address] MERA.
[2020-08-22 11:27] VITALS: BP 106/58
--- NOTE | 2020-08-22 13:06 | NUR ---
RECEIVED VERBAL ORDER FROM DR MERA TO GIVE 60MEQ KCL IV TOTAL FOR K 2.7. 20MEQ OF KCL INFUSED; SECOND BAG OF 20MEQ KCL IS INFUSING. ORDERED ADDITIONAL 20MEQ OF KCL IV TO MAKE TOTAL OF 60MEQ KCL PER DR MERA VERBAL ORDER.
--- NOTE | 2020-08-22 13:57 | NUR ---
PT TOLERATED FULL LIQUID DIET WELL. NO N/V REPORTED/NOTED. PER DR MERA VERBAL ORDER, ADVANCE DIET TO MECHANICAL-SOFT IF PT TOLERATES FULL LIQUID DIET WELL.
--- NOTE | 2020-08-22 15:39 | NUR ---
Initial Nutrition Assessment: [address] MAGDIEL URIBE 45F HR Nursing Trigger: N/V/D > 3 days, Poor PO intake > 3 days Dx: Hypoglycemia, alcoholic pancreatitis, acidosis PMHx: Obesity s/p gastric bypass surger 2005, cholecystectomy, chronic back pain, herniate disc, alcohol abuse, fibromyalgia PSHx: Cholecystectomy, Hernia repair, hysterectomy, Gastric bypass and resection of benign liver mass 2005 Labs: (08/22) H/H 9.8/30L, K 2.7L, Cr 0.5L, Ca 7.9L, AST 62H, Ammonia 41H, albumin 3.1L, *no updated lipid panel Meds: D5%, KCL, Reglan, Ativan, Morphine sulfate, Klor-con, Magnesium sulfate, Flomax, folic acid, Lexapro, Vitamin B-1, Protonix, Tylenol, Zofran Diet: mechanical soft low-fat diet; previously on Clear liquid diet PO intake since admission: (08/21) L: 50%, D: 10% Ht: 160.02cm/63in Wt: 91.626kg/201.6lbs BMI: 35.8kg/m2 Bed scale: 212lbs IBW: 52.27kg/115lbs %IBW: 175.3% ABW: 62kg UBW: fluctuate 197-200lbs per pt Age: 45 Food Allergies: NKFA Edema: none noted Last BM: 08/20 Skin: skin intact Milo: 19 Per H and P (08/20), pt is a 45-year female with PMH of obesity s/p gastric bypass surgery 2005, previous cholecystectomy, chronic back pains, herniated disc, alcohol abuse presents to ER with 5 days of upper abdominal pains witthe vomiting and diarrhea. She has been drinking alcohol alomost daily for 1 year; she quit for awahile but started drinking again. She drinks vodka with Coke - 3 to 4 cups daily; last drink 3 days ago. She developed vomiting and loose BMs 5 days ago then developed abdominal pain which has increased in severity. She has not eaten food in 5 days. She came to ER. In ER, BP 162/92, HR 109 bpm, afebrile. Labs: lipase 2763, AST 314, ALT 117, bili 1.2, WBC 7.5, plasma alcohol 0.085, BUN 23, Cr 0.8. HCO 7.4, pH 7.23, glucoes 64. CT abd/pelvis - normal appendix; no kidney stone or hydronephrosis; steatosis; right paramedian ventral hernia with fat; obscured pancreas. US abd CBD 12 mm. Pt was admitted with dx: acute abd pain with vomiting and diarrhea, acute pancreatitis alcohol related, metabolic acidosis, alcohol abuse, obesity with BMI, Previous gastric bypass and cholecystectomy, Chronic back pain, Hypoglycemia RD Note (08/22/2020) Per progress note (08/21), abd pain and nausea better, no vomiting, has been receiving IV morphine. Pt was seen lying in bed during bedside visit. Pt reported nausea and feeling hungry. Pt denied chewing/swallowing difficulty weight changes or use of alcohol. Per pt, she does not take any nutrition supplements at home, and she follows a regular diet and tries to eat in moderation. Pt is currently not practicing any physical activity d/t COVID. Problem with: N/V/D/C: Nausea per pt; pt on Zofran and Reglan Problems with: Chewing: Swallowing: none per pt Current appetite: hungry per pt Recent wt change: none per pt %wt change: none per pt Height: 5'3" Vitamin/Supplement use: none per pt Special diet at home: Regular diet per pt Physical activity: low activity level per pt Nutrition education given (specify specific nutrition education and handout given): Provided education on pancreatitis, bariatric surgery vitamins and alcohol use. Encouraged pt to follow a low-fat diet for pancreatitis during recovery. Advised pt to read over the list of vitamins and minerals d/t her h/o bariatric surgery and explained the reasons. Additionally, encouraged pt to limit alcohol use. Written education "Bariatric Surgery Vitamin and Mineral Supplements" and "Pancreatitis Nutrition Therapy" from [facility] were provided to pt. Pt accepted education. Food-drug interactions? Education given? n/a Estimated Nutritional Needs Based on adjusted body weight (62kg) Energy: 6127-5598 kcal/day (25-30 kcal/kg for weight reduction) Protein: 62-74 g/day (1-1.2 g/kg for weight reduction and polysubstance abuse) Fluid: 5256-9012 mL/day (1 mL/kcal) Nutrition Diagnosis: 1. Inadequate energy and protein intake r/t poor appetite a/e/b pt 10-50% PO intake since admission. 2. Obesity r/t imbalance intake and output a/e/b pt reported not being able to go out and exercise, and BMI = 35.8kg/m2. Intervention 1. Continue with mechanical soft low-fat diet 2. Recommend ensure high protein BID for additional 320kcal and 32g protein. 3. Consider decrease or d/c ONS if PO intake meets need upon follow up. Monitor/Evaluate Goal: PO intake at least 75% of estimated needs Monitor: PO intake, Labs, GI function, ONS intake F/U in 3-5 days as moderate risk 08/25-
[2020-08-22 16:24] VITALS: BP 123/71
--- NOTE | 2020-08-22 17:02 | NUR ---
INFUSED 60MEQ TOTAL OF KCL IV FOR POTASSIUM 2.[address] MERA VERBAL ORDER (SEE EMAR).
--- NOTE | 2020-08-22 18:19 | NUR ---
PT IS A/OX4. TELE #13, NSR/ST. VS STABLE. PT ADVANCED FROM FULL LIQUID DIET TO LOW FAT/SOFT DIET. PT REPORTS MILD NAUSEA AND WILL TAKE REGLAN PRN. PAIN TO UPPER ABDOMEN WAS CONTROLLED BY MORPHINE IVP AROUND THE CLOCK PER EMAR. INFUSED 60MEQ OF KCL IV FOR POTASSIUM 2.7 PER EMAR. SEIZURE PRECAUTIONS MAINTAINED. IV TO RAC, D5NS IS INFUSING AT 125ML/HR. ALL PROTOCOLS IN PLACE; WILL ENDORSE CARE TO ONCOMING NURSE.
--- NOTE | 2020-08-22 19:35 | NUR ---
Recieved pt alert and oriented, able to make needs known able to follow commands. Pt on seizure precaution d/t ETOH. Tele # 13 NSR at 93, Lungs sound clear, O2 sat 97%. BS active last BM 08/20/20. On mechanical soft diet, able to tolerate 50% of meals with no complaints of N/V. IVF: D5NS at 125/hr to RAC continous, IV site no redness, no pain. Ambulatory, uses BSC. Has [place] and Mso4 for pain PRN. CT: R ventral Hernia, US abd: cholecystectomy.
--- NOTE | 2020-08-22 19:41 | NUR ---
PT C/O LOWER ABDL PAIN 01/24. MORPHINE SULFATE 4 MG IV GIVEN.
--- NOTE | 2020-08-22 19:50 | NUR ---
RECEIVED PT IN BED W/ EYES CLOSED. SHE HAS TRACH IN PLACE CONNECETD TO VENT AT PC/AC MODE W/ FF SETTINGS: RATE=24 PEEP=5 FI02=35%. RESP. EVEN AND UNLABORED. PT APPEARS CALM. LUNG SOUNDS W/ CRACKLES NOTED. BOWEL SOUNDS ACTIVE. W/ PEG IN PLACE W/ FEEDING AT 40 CC/HR. NO RESIDUALS NOTED. W/ LOVE CATH DRAINING WELL TO GRAVITY. W/ PICC LINE TO [place] INTACT AND PATENT. WILL CONTINUE TO MONITOR.
--- NOTE | 2020-08-23 00:20 | NUR ---
9150 pt's IV site positional, IV fluid not draining properly. Old IV line on right AC removed. Changed to left hand, inserted # [id number] needle/line patent
--- NOTE | 2020-08-23 03:29 | NUR ---
Pt woke up from pain on her lower abdominal area 02/24. Mso4 4mg IVP given as ordered...
[2020-08-23 05:39] VITALS: BP 129/75
--- NOTE | 2020-08-23 05:53 | NUR ---
Pt resting comfortably at this time. Was given Ms04 x 2 during the shift for mod to severe abdominal pain. No N/V noted. Cont to be on seizure precaution, none noted during this shift. Cont to receive hydration of D5NS at 125cc/hr. IV site to right AC changed to left hand IV site no redness, no pain, patent. A/O, able to make needs known, able to follow commands. Continent of urine, uses BSC.
--- NOTE | 2020-08-23 06:25 | NUR ---
PT C/O LOWER ABDL PAIN 7/10 AND SHE IS REQUESTING FOR MORPHINE SULFATE ( PT REFUSED NORCO). MEDICATED PT W/ MORPHINE SULFATE 4 MG IV.
[2020-08-23 06:38] LABS: BASOPHIL % 0.5 % (0.2-1.3)
[2020-08-23 06:47] LABS: PLATELET COUNT 121 x10^3mcL (179-408); RED CELL DISTRIBUTION WIDTH 20.1 % (12.3-17.7)
[2020-08-23 07:12] LABS: ALKALINE PHOSPHATASE 99 U/L (46-116); ALT/SGPT 46 U/L (14-59); AST/SGOT 43 U/L (15-37); BILIRUBIN TOTAL 0.5 mg/dL (0.20-1.00); CALCIUM 8.2 mg/dL (8.5-10.1); CARBON DIOXIDE 26.5 mmol/L (21-32); CHLORIDE SERUM 106 mmol/L (98-107); CREATININE SERUM 0.4 mg/dL (0.6-1.0); GFR1 > 60 mL/min; GLUCOSE SERUM 93 mg/dL (74-106); LIPASE 874 IU/L (73-393); MAGNESIUM 1.6 mg/dL (1.8-2.4); POTASSIUM SERUM 3.1 mmol/L (3.5-5.1); SODIUM SERUM 141 mmol/L (136-145); TOTAL PROTEIN, SERUM 6.2 g/dL (6.4-8.2)
[2020-08-23 07:14] LABS: ALBUMIN 2.9 g/dL (3.4-5.0)
--- NOTE | 2020-08-23 07:30 | NUR ---
RECEIVED REPORT FROM OPEN WINDER NURSE. PT IS A/OX4. TELE #13 NSR/ST. SEIZURE PRECAUTIONS IN PLACE. PT C/O PAIN TO HER LOWER ABDOMEN 11/24-RECEIVES MORPHINE IVP AROUND CLOCK PER EMAR. NO N/V REPORTED/NOTED AT THIS TIME.PT IS AMBULATORY; UP TO BATHROOM. IV TO LH, D5NS IS INFUSING AT 125ML/HR. ALL PROTOCOLS IN PLACE; WILL CONTINUE TO MONITOR.
[2020-08-23 08:16] VITALS: BP 139/88
--- NOTE | 2020-08-23 10:39 | NUR ---
MADE DR MERA AWARE ABOUT POTASSIUM 3.1; MG 1.6. RECEIVED VERBAL ORDER TO GIVE 40MEQ KCL PO ONCE. 400MG OF MAGNISIUM OXIDE PO ONCE. PT TOLERATED DIET WELL WITH SOME MILD NAUSEA. RECEIVED VERBAL ORDER TO CHANGE DIET TO LOW FAT/REGULAR CONSISTENCY. DECREASE IV D5NS RATE FROM 125 ML/HR TO 70ML/HR.
--- NOTE | 2020-08-23 11:14 | NUR ---
40MEQ KCL PO AND 400MG OF MG OXIDE GIVEN PER EMAR FOR K 3.1 AND MG 1.6. PT STARTED ON LOW FAT DIET AND DECREASED D5NS TO 70ML/HR.
[2020-08-23 12:15] VITALS: BP 115/70; BP 94/60
[2020-08-23 15:59] VITALS: BP 102/66
--- NOTE | 2020-08-23 17:47 | NUR ---
PT IS A/OX4. TELE #32, NSR. PT REPORTS PAIN TO ABDOMEN AND WAS CONTROLLED BY MORPHINE IVP PER EMAR AROUND CLOCK. PT C/O ANXIETY-ATIVAN GIVEN PER EMAR. POTASSIUM AND MAGNISIUM WAS COVERED WITH PO MEDICATIONS PER EMAR. PT TOLERATED LOW FAT DIET WELL; NO NAUSEA/VOMING REPORTED/NOTED. SIEZURE PRECAUTIONS MAINTAINED. IV TO LH CHANGED DUE TO INFILTRATION. IV TO RFA, 22G, D5NS IS INFUSING AT 70ML/HR. ALL PROTOCOLS IN PLACE; WILL ENDORSE CARE TO ONCOMING NURSE.
--- NOTE | 2020-08-23 19:37 | NUR ---
1935 received pt this shift awake, alert, oriented , able to make needs known , able to follow commands. Bilat lungs clear, no crackles, upper, lower ext no edema, pedal pulses appreciated. Some mild to moderate pain on slight palpation to bilat calves. Abd. obese, with mild to moderate pain on palpation. Bowel sounds weak but + on all 4 quad. Pt started on low fat diet, able to consume and tolerate 90% of meals. No episode of N/V during the day until this time. Will offer pain med as needed, as ordered and continue to monitor.
[2020-08-23 20:44] VITALS: BP 102/62
--- NOTE | 2020-08-24 00:38 | NUR ---
Pt medicated for abdominal pain. Now sleeping comfortably, breathin even and unlabored.
[2020-08-24 05:13] VITALS: BP 127/74
--- NOTE | 2020-08-24 05:54 | NUR ---
Pt given MSO4 x 3 for pain 12/24, 11/24, 12/24. No N/V during the shift. Continues to be alert and oriented, able to make needs known, able to follow commands.
[2020-08-24 06:04] LABS: BASOPHIL % 0.4 % (0.2-1.3); PLATELET COUNT 132 x10^3mcL (179-408)
[2020-08-24 06:07] LABS: RED CELL DISTRIBUTION WIDTH 20.2 % (12.3-17.7)
[2020-08-24 06:08] LABS: rbc morphology (normal/abnorm) NORMAL (NORMAL)
[2020-08-24 06:13] LABS: ALKALINE PHOSPHATASE 106 U/L (46-116); ALT/SGPT 45 U/L (14-59); AST/SGOT 41 U/L (15-37); BILIRUBIN TOTAL 0.44 mg/dL (0.20-1.00); CALCIUM 7.9 mg/dL (8.5-10.1); CARBON DIOXIDE 28.5 mmol/L (21-32); CHLORIDE SERUM 105 mmol/L (98-107); CREATININE SERUM 0.5 mg/dL (0.6-1.0); GFR1 > 60 mL/min; GLUCOSE SERUM 95 mg/dL (74-106); LIPASE 775 IU/L (73-393); MAGNESIUM 1.6 mg/dL (1.8-2.4); POTASSIUM SERUM 3.6 mmol/L (3.5-5.1); SODIUM SERUM 142 mmol/L (136-145); TOTAL PROTEIN, SERUM 6.3 g/dL (6.4-8.2)
[2020-08-24 06:19] LABS: ALBUMIN 2.9 g/dL (3.4-5.0)
--- NOTE | 2020-08-24 08:00 | NUR ---
PT A/O X4. PT ON TELE#13 SR/ST. (+) RADIAL/PEDAL PULSES. NO EDEMA. PT HAS BILAT CLEAR LUNG SOUNDS O2SAT 98% AT RA. GI/ (+) BOWEL SOUNDS, LAST BM 3/6, PT VOIDS. PT HAS GEN WEAKNESS PT IS AMBULATORY. SKIN INTACT. PT C/O ABD PAIN 9/10 IN PAIN SCALE. PT HAS IV CATH ON RFA 22G RUNING D5NS AT 70ML/HR. PT ANXIOUS. WILL MANAGE ANXIETY AND PAIN PER PROTOCOL. CALL LIGHT WITHIN REACH, BED LOCKED AND AT LOWEST POSTION.
[2020-08-24 08:04] VITALS: BP 133/71
[2020-08-24 12:30] VITALS: BP 105/62
[2020-08-24 16:37] VITALS: BP 104/69
--- NOTE | 2020-08-24 18:00 | NUR ---
PT RESTING IN BED, PT WAS ADVISE OF DISCHARGE ORDERS, PT STATES FAMILY WILL PICK HER UP AT 2000 HRS. PT SIGNED DISCHARGE PAPERS AND WILL ADVISE CHIEF DEPUTY CLERK/BAILIFF NURSE WHEN FAMILY IS HERE TO PICK HER UP TO D/C IV AND TELE. PT'S VITALS ARE STABLE BP124/74 HR 89 RR 18 TEMP 98.2, O2SAT 96% @ RA.
--- NOTE | 2020-08-24 19:35 | NUR ---
RECEIVED PT FROM DAY SHIFT NURSE. PT IS RESTING IN BED AT THIS TIME. PT IS A/OX4. ON TELE #[address] W/ ST. PULSES PALPABLE. NO EDEMA NOTED. O2 SAT OF 95% ON RA. RR EVEN AND UNLABORED. NO C/O CHEST PAIN, [place] OR SOB. PT VOIDS FREELY. GENERALIZED WEAKNESS NOTED. PT HAS RFA IV, CURRENTLY ON SALINE LOCK. PT APPEARS CALM AND IS COOPERATIVE AT THIS TIME. PT STATED ABD PAIN, AND IS REQUESTING PAIN MEDICATION. WILL ADMINISTER MEDICATION PER AUG. CALL LIGHT W/IN REACH. BED LOCKED AND IN LOWEST POSITION. INFORMED PT TO USE CALL LIGHT NEEDED.
[2020-08-24 19:44] VITALS: BP 95/53
--- NOTE | 2020-08-24 20:05 | NUR ---
PT AWAITING FAMILY TO ARRIVE. D/C TELE MONITOR. D/C PT IV. IV CATH INTACT AND DISPOSED OF IN APPROPRIATE RECEPTACLE. IV SITE IS CLEAN, DI, DRESSED APPROPRIATELY. CALL LIGHT W/IN REACH. BED LOCKED AND IN LOWEST POSITION. INFORMED PT TO USE CALL LIGHT NEEDED.
--- NOTE | 2020-08-24 20:19 | NUR ---
PT FAMILY MEMBER HAS ARRIVED. PT HAS BELONGINGS W/ HER. PT WHEELCHAIRED DOWNSTAIRS W/ ANTONIO RAINEY.
[2020-08-25] MEDS ORDERED: ONDANSETRON4 M3 PO ×2 (23:12→23:18)
[2020-08-25] MEDS ORDERED: ACETAMINOPHEN-H1 TA1 PO (23:12)
== END 2020-08-24 20:15 | disposition home or self-care (01) | DRG 282 ==
LOC: ED 02:05 → DU 05:48
PROVIDERS: Emergency Medicine; ADMIT Internal Medicine; ATTEND Internal Medicine
DX: K85.20 Alcohol induced acute pancreatitis without necrosis or infection (principal); E87.2 Acidosis; E83.42 Hypomagnesemia; F32.9 Major depressive disorder, single episode, unspecified; F41.9 Anxiety disorder, unspecified; Z20.822 Contact with and (suspected) exposure to COVID-19; G89.29 Other chronic pain; M79.7 Fibromyalgia; M54.5 Low back pain; E66.9 Obesity, unspecified; F10.10 Alcohol abuse, uncomplicated; E16.2 Hypoglycemia, unspecified; E87.6 Hypokalemia; Y90.9 Presence of alcohol in blood, level not specified; Z90.49 Acquired absence of other specified parts of digestive tract; Z88.5 Allergy status to narcotic agent; Z88.6 Allergy status to analgesic agent; Z90.710 Acquired absence of both cervix and uterus; Z98.84 Bariatric surgery status; Z80.8 Family history of malignant neoplasm of other organs or systems; Z81.8 Family history of other mental and behavioral disorders; Z68.35 Body mass index [BMI] 35.0-35.9, adult; Z23 Encounter for immunization; Z79.899 Other long term (current) drug therapy
CPT/HCPCS: 36600; 82693; 82962; 90658; C9113; G0378; G0480; J2270; J2405; J2765; J3010; J3475; J3480; J7030; J7042; J7070; U0003

== ENCOUNTER 2020-08-25 20:15 | Emergency (ER) | payer OTHER ==
[~2020-08-25] VITALS: Ht 160 cm; Wt 95.3 kg
[2020-08-25 20:27] VITALS: Ht 160 cm; Wt 95.3 kg
[2020-08-25 21:15] LABS: BASOPHIL % 0.7 % (0.2-1.3); PLATELET COUNT 227 x10^3mcL (179-408)
[2020-08-25 21:21] LABS: RED CELL DISTRIBUTION WIDTH 22.4 % (12.3-17.7)
[2020-08-25 21:26] LABS: CALCIUM 8.8 mg/dL (8.5-10.1); CHLORIDE SERUM 98 mmol/L (98-107); CREATININE SERUM 0.7 mg/dL (0.6-1.0); GFR1 > 60 mL/min; GLUCOSE SERUM 97 mg/dL (74-106); POTASSIUM SERUM 3.1 mmol/L (3.5-5.1); SODIUM SERUM 140 mmol/L (136-145)
[2020-08-25 21:29] LABS: rbc morphology (normal/abnorm) ABNORMAL (NORMAL)
[2020-08-25 21:31] LABS: ALBUMIN 3.6 g/dL (3.4-5.0); ALKALINE PHOSPHATASE 123 U/L (46-116); ALT/SGPT 43 U/L (14-59); AST/SGOT 37 U/L (15-37); BILIRUBIN TOTAL 0.76 mg/dL (0.20-1.00); CHOLESTEROL 140 mg/dL (<200); TOTAL PROTEIN, SERUM 7.6 g/dL (6.4-8.2); TRIGLYCERIDES 55 mg/dL (<150)
[2020-08-25 21:44] LABS: CHOLESTEROL/HDL RATIO 5.8; HDL CHOLESTEROL 24 mg/dL (40-60)
[2020-08-25 22:11] LABS: UA SPECIFIC GRAVITY 1.025 (1.005-1.035); microscopic required? YES; urine erythrocyte TRACE (NEGATIVE)
[2020-08-25] MEDS ORDERED: ACETAMINOPHEN-H1 TA1 PO (23:12)
[2020-08-25] MEDS ORDERED: ONDANSETRON4 M3 PO ×2 (23:12→23:18)
[2020-08-25 23:44] VITALS: BP 120/70
== END 2020-08-25 23:44 | disposition home or self-care (01) ==
LOC: ED 20:15
PROVIDERS: Specialist
DX: K85.90 Acute pancreatitis without necrosis or infection, unspecified (principal); Z88.6 Allergy status to analgesic agent; Z88.5 Allergy status to narcotic agent; M79.7 Fibromyalgia; Z98.84 Bariatric surgery status; Z90.710 Acquired absence of both cervix and uterus; Z98.890 Other specified postprocedural states
CPT/HCPCS: J2405; J3010; J7030